=== PATIENT | male | born 1950 | race Caucasian/White ===

== ENCOUNTER 2020-07-23 01:48 | Emergency (ER) | payer MEDICARE, SELFPAY ==
--- NOTE | ~2020-07-23 | XR_ITS ---
EXAMINATION: XR chest 2V EXAM DATE: 07/23/2020 02:58 INDICATION: Feels like has irregular heartbeat. TECHNIQUE: Frontal and lateral projections of the chest obtained and reviewed. Comparison is made to prior examination from 04/05/2016. FINDINGS: Mild chronic hyperinflation. The lungs are clear. There are no pleural effusions. The ca rdiomediastinal silhouette is within normal limits. There is no pneumothorax suspected. The bones a nd soft tissues are unremarkable. IMPRESSION: No acute cardiopulmonary findings. Reviewed, dictated and finalized at location A. [employer]
[2020-07-23 01:58] VITALS: BP 152/90; PULSE 90; RESP 15; TEMP 36.7; O2SAT 98
--- NOTE | 2020-07-23 02:02 | ECG_ITS ---
Measurements Intervals [place] Rate: 84 P: 73 WI: 176 QRS: 63 QRSD: 89 T: 55 QT: 331 QTc: 391 Interpretive Statements SINUS RHYTHM POSSIBLE LEFT ATRIAL ENLARGEMENT BORDERLINE ECG Electronically Signed On 07-23-2020 11:28:43 SALES PROMOTION OFFICER by Mesfin Campbell D.O.
[2020-07-23] MEDS: ASPIRIN 81 MG CHEWABLE TABLET 324 MG PO (02:21)
[2020-07-23 02:26] LABS: Basophils Percent Auto 0.4 % (0.2-1.2); Eosinophils Absolute Auto 0.1 K/mm3 (0-0.3); Hematocrit 46.5 % (42.0-52.0); Immature Granulocyte Absolute 0.01 K/mm3 (0.00-0.031); Immature Granulocyte Percent A 0.1 % (0-0.5); Lymphocytes Absolute Auto 1.84 K/mm3 (0.9-3.2); Lymphocytes Percent Auto 25.9 % (18.3-44.2); Mean Corpuscular HGB Conc 34.4 g/dl (32-36); Mean Corpuscular Hemoglobin 31.3 pg (26-34); Mean Corpuscular Volume 90.8 fl (80-100); Mean Platelet Volume 10.8 fl (7.4-10.4); Monocytes Absolute Auto 0.7 K/mm3 (0.1-0.6); Monocytes Percent Auto 10.4 % (2.6-8.5); Neutrophils Absolute Auto 4.4 K/mm3 (1.3-6.7); Neutrophils Percent Auto 61.2 % (45.5-73.1); Platelet Count Result 188 k/mm3 (150-375); Red Blood Count 5.12 M/mm3 (4.6-6.20); Red Cell Distribution Width 12.6 % (11.5-14.5); White Blood Count 7.1 K/mm3 (4.5-10.0)
--- NOTE | 2020-07-23 02:32 | ED.ARRPALP ---
HPI - Arrhythmia/Palpitations General Chief Complaint: Arrhythmia/Palpitations Stated Complaint: Irregular HR Time Seen by Provider: 07/23/20 02:15 Source: patient Mode of arrival: ambulatory Limitations: no limitations History of Present Illness HPI narrative: Patient 62-year-old male complaining of irregular heartbeat described as when I took my heart rate it would go from 60 then 110 started prior to arrival. Patient states that he was checking his blood pressure using the machine, and the heart rate on the machine would jump from 60-110 back to 60. Patient denies any chest pain, shortness of breath, abdominal pain, nausea, vomiting, diaphoresis, fever or chills. Patient was a symptomatic during this time. Related Data Home Medications Medication Instructions Recorded Confirmed lisinopril 07/23/20 Allergies Allergy/AdvReac Type Severity Reaction Status Date / Time No Known Allergies Allergy Verified 07/23/20 02:18 Review of Systems Review of Systems: All systems reviewed & are unremarkable except as noted in HPI and below Constitutional: Constitutional: Denies body ache(s), Denies chills, Denies excessive sweating, Denies fatigue, Denies fever(s), Denies headache(s), Denies lethargy, Denies malaise, Denies weakness and Denies weight loss Eyes: Eyes: Denies blurry vision, Denies change in vision and Denies loss of vision ENT: Denies dizziness, Denies ear discharge, Denies headache(s), Denies lip swelling, Denies epistaxis, Denies nasal congestion, Denies neck pain, Denies throat swelling and Denies tongue swelling Cardiovascular: Cardiovascular: Denies chest pain, Denies chest pain at rest, Denies chest pain with activity, Denies diaphoresis, Denies edema, Denies lightheadedness, Denies dyspnea and Denies dyspnea on exertion Respiratory: Respiratory: Denies chest congestion, Denies cough, Denies hemoptysis, Denies dyspnea and Denies dyspnea on exertion Gastrointestinal: Gastrointestinal: Denies abdominal pain, Denies melena, Denies hematochezia, Denies diarrhea, Denies nausea, Denies vomiting and Denies hematemesis Musculoskeletal: Musculoskeletal: Denies abnormal gait, Denies deformity, Denies joint swelling, Denies limited range of motion, Denies neck pain and Denies numbness Neurologic: Denies Abnormal speech present, Denies abnormal gait, Denies confusion, Denies dizziness, Denies headache(s), Denies focal weakness, Denies loss of vision, Denies numbness, Denies Other visual disturbances, Denies Sensory deficit (Neuro) and Denies weakness Psychiatric: Psychiatric: Denies confusion, Denies depression, Denies auditory hallucinations, Denies homicidal ideation and Denies suicidal ideation Endocrine: Endocrine: Denies cold intolerance, Denies excessive sweating, Denies fatigue, Denies heat intolerance and Denies palpitations Hematologic/Lymphatic: Hematologic/Lymphatic: Denies easy bleeding and Denies easy bruising Allergic/Immunologic: Allergic/Immunologic: Denies lip swelling, Denies throat swelling and Denies tongue swelling Exam Const: General: cooperative, healthy appearing, comfortable, no acute distress, well developed, alert and awake; No confusion Orientation/consciousness: oriented to person, oriented to place, oriented to time, patient oriented x3 and No confusion Limitations: no limitations HENMT: Head: normal to inspection, normocephalic and atraumatic Ears: hearing grossly normal bilaterally, TM normal on the right and TM normal on the left General nose exam: Normal external nose present, Normal nares present and No nasal discharge present Face and sinus: normal facial exam Mouth: Yes Normal oral and palatal mucosa present, Yes lip normal, Yes tongue normal and Yes oropharynx normal Throat: posterior oropharynx normal, tonsils normal and uvula midline Eyes: General: appearance normal, both eyes and all related structures Pupils: Equal, round and reactive pupils present EOM: EOMs intact bilaterally
[2020-07-23 02:33] LABS: Prothrombin Time 14.2 Seconds (11.1-14.7)
[2020-07-23 02:34] LABS: Partial Thromboplastin Time 29.3 SECONDS (22.3-36.8)
[2020-07-23 02:35] LABS: Anion Gap 7 mmol/L (8-16); Blood Urea Nitrogen 21 mg/dL (9-20); Calcium 9.2 mg/dL (8.4-10.2); Carbon Dioxide 32 mmol/L (22-30); Chloride 102 mmol/L (98-107); Estimated CRCL calculation 65 ml/min; Estimated Glomerular Filt Rate > 60; Glucose 117 mg/dL (75-110); Potassium 3.7 mmol/L (3.4-5.0); Sodium 141 mmol/L (137-145)
[2020-07-23 02:47] LABS: Troponin I < 0.012 ng/mL (0.000-0.034)
[2020-07-23 03:35] VITALS: BP 148/83; PULSE 87; RESP 16; O2SAT 100
[2020-07-23 03:36] VITALS: BP 134/79; PULSE 78; RESP 16; TEMP 36.7; O2SAT 99
== END 2020-07-23 03:37 | disposition home or self-care (01) ==
PROVIDERS: Emergency Provider Emergency Medicine; PCP Family Medicine
DX: R00.2 Palpitations (principal); R94.31 Abnormal electrocardiogram [ECG] [EKG]
CPT/HCPCS: 36415; 71046; 80048; 84484; 85025; 85610; 85730; 93005; 99284; A9270

== ENCOUNTER → 2021-04-13 03:01 | Outpatient (CLI) | payer MEDICARE, SELFPAY ==
[2021-04-13 19:42] LABS: SARS-CoV-2 RNA PCR Negative
== END ==
PROVIDERS: PCP Nurse Practitioner Adult Health; Visit Provider Nurse Practitioner Adult Health
DX: R09.81 Nasal congestion (principal); Z20.822 Contact with and (suspected) exposure to COVID-19
CPT/HCPCS: C9803; U0003; U0005

== ENCOUNTER 2023-11-08 15:19 | Outpatient (CLI) | payer MEDICARE, SELFPAY ==
[2023-11-08 15:49] LABS: Basophils Percent Auto 0.4 % (0.2-1.2); Eosinophils Absolute Auto 0.2 K/mm3 (0-0.3); Eosinophils Percent Auto 3.7 % (0-4.4); Hematocrit 43.4 % (42.0-52.0); Hemoglobin 14.4 g/dL (14.0-18.0); Immature Granulocyte Absolute 0.01 K/mm3 (0.00-0.031); Immature Granulocyte Percent A 0.2 % (0-0.5); Lymphocytes Absolute Auto 0.78 K/mm3 (0.9-3.2); Mean Corpuscular HGB Conc 33.2 g/dl (32-36); Mean Corpuscular Hemoglobin 29.2 pg (26-34); Mean Platelet Volume 9.7 fl (7.4-10.4); Monocytes Absolute Auto 0.5 K/mm3 (0.1-0.6); Monocytes Percent Auto 9.4 % (2.6-8.5); Neutrophils Absolute Auto 3.4 K/mm3 (1.3-6.7); Neutrophils Percent Auto 70.3 % (45.5-73.1); Platelet Count Result 192 k/mm3 (150-375); Red Blood Count 4.93 M/mm3 (4.6-6.20); Red Cell Distribution Width 14.1 % (11.5-14.5); White Blood Count 4.9 K/mm3 (4.5-10.0)
[2023-11-08 18:10] LABS: Alanine Aminotransferase 24 U/L (6-50); Albumin Level 4.5 g/dL (3.5-5.1); Alkaline Phosphatase 53 U/L (38-126); Anion Gap 8 mmol/L (8-16); Aspartate Amino Transferase 34 U/L (17-59); Bilirubin,Total 0.8 mg/dL (0.2-1.3); Blood Urea Nitrogen 16 mg/dL (9-20); Calcium 9.6 mg/dL (8.4-10.2); Carbon Dioxide 30 mmol/L (22-30); Chloride 103 mmol/L (98-107); Estimated Glomerular Filt Rate > 60; Glucose 159 mg/dL (65-110); Lactate Dehydrogenase 194 U/L (120-246); Potassium 3.7 mmol/L (3.4-5.0); Sodium 141 mmol/L (137-145)
[2023-11-10 14:31] LABS: Folic Acid > 20.0 ng/mL (2.76->20)
[2023-11-10 15:36] LABS: Iron 53 ug/dL (49-181)
[2023-11-10 16:04] LABS: Percent Iron Saturation 18 % (20-50)
[2023-11-11 04:44] LABS: Methylmalonic Acid 171 nmol/L (87-318)
[2023-11-16 09:52] LABS: Soluble Transferrin Receptor 1.55 mg/L (0.76-1.76)
== END 2023-11-08 15:20 | disposition home or self-care (01) ==
LOC: ANHLAB 15:21
PROVIDERS: Nurse Practitioner Family; PCP Nurse Practitioner Adult Health; Visit Provider Internal Medicine Hematology & Oncology
DX: D72.810 Lymphocytopenia (principal); D50.9 Iron deficiency anemia, unspecified
CPT/HCPCS: 36415; 80053; 82607; 82728; 82746; 83540; 83550; 83615; 83921; 84238; 85025; 86038

== ENCOUNTER 2024-03-19 13:32 | Outpatient (CLI) | payer MEDICARE, SELFPAY ==
[2024-03-19 13:49] LABS: Basophils Percent Auto 0.3 % (0.2-1.2); Eosinophils Absolute Auto 0.1 K/mm3 (0-0.3); Eosinophils Percent Auto 2.6 % (0-4.4); Hematocrit 40.7 % (42.0-52.0); Hemoglobin 13.7 g/dL (14.0-18.0); Immature Granulocyte Absolute 0.01 K/mm3 (0.00-0.031); Immature Granulocyte Percent A 0.3 % (0-0.5); Lymphocytes Absolute Auto 0.71 K/mm3 (0.9-3.2); Lymphocytes Percent Auto 18.7 % (18.3-44.2); Mean Corpuscular HGB Conc 33.7 g/dl (32-36); Mean Corpuscular Hemoglobin 30.2 pg (26-34); Mean Corpuscular Volume 89.8 fl (80-100); Mean Platelet Volume 9.7 fl (7.4-10.4); Monocytes Absolute Auto 0.4 K/mm3 (0.1-0.6); Monocytes Percent Auto 9.7 % (2.6-8.5); Neutrophils Absolute Auto 2.6 K/mm3 (1.3-6.7); Neutrophils Percent Auto 68.4 % (45.5-73.1); Platelet Count Result 167 k/mm3 (150-375); Red Blood Count 4.53 M/mm3 (4.6-6.20); Red Cell Distribution Width 13.2 % (11.5-14.5); White Blood Count 3.8 K/mm3 (4.5-10.0)
[2024-03-19 16:43] LABS: Iron 109 ug/dL (49-181)
[2024-03-19 16:47] LABS: Anion Gap 10 mmol/L (4-12); Blood Urea Nitrogen 15 mg/dL (9-20); Calcium 8.8 mg/dL (8.4-10.2); Carbon Dioxide 28 mmol/L (22-30); Chloride 100 mmol/L (98-107); Estimated Glomerular Filt Rate > 60; Glucose 136 mg/dL (65-110); Potassium 4.2 mmol/L (3.4-5.0); Sodium 138 mmol/L (137-145)
[2024-03-19 16:55] LABS: Percent Iron Saturation 37 % (20-50)
== END 2024-03-19 13:33 | disposition home or self-care (01) ==
LOC: ANHLAB 13:33
PROVIDERS: Nurse Practitioner Family; PCP Nurse Practitioner Adult Health; Visit Provider Internal Medicine Hematology & Oncology
DX: D50.9 Iron deficiency anemia, unspecified (principal); D72.810 Lymphocytopenia
CPT/HCPCS: 36415; 80048; 82607; 82728; 83540; 83550; 85025

== ENCOUNTER 2024-07-25 12:12 | Outpatient (CLI) | payer MEDICARE, SELFPAY ==
[2024-07-25 12:27] LABS: Basophils Percent Auto 0.5 % (0.2-1.2); Eosinophils Absolute Auto 0.2 K/mm3 (0-0.3); Eosinophils Percent Auto 4.1 % (0-4.4); Hematocrit 39.9 % (42.0-52.0); Hemoglobin 13.5 g/dL (14.0-18.0); Immature Granulocyte Absolute 0.01 K/mm3 (0.00-0.031); Immature Granulocyte Percent A 0.3 % (0-0.5); Lymphocytes Absolute Auto 0.86 K/mm3 (0.9-3.2); Mean Corpuscular HGB Conc 33.8 g/dl (32-36); Mean Corpuscular Hemoglobin 30.8 pg (26-34); Mean Corpuscular Volume 91.1 fl (80-100); Mean Platelet Volume 9.5 fl (7.4-10.4); Monocytes Absolute Auto 0.5 K/mm3 (0.1-0.6); Monocytes Percent Auto 12.8 % (2.6-8.5); Neutrophils Absolute Auto 2.4 K/mm3 (1.3-6.7); Neutrophils Percent Auto 60.3 % (45.5-73.1); Platelet Count Result 169 k/mm3 (150-375); Red Blood Count 4.38 M/mm3 (4.6-6.20); Red Cell Distribution Width 12.6 % (11.5-14.5); White Blood Count 3.9 K/mm3 (4.5-10.0)
[2024-07-25 14:20] LABS: Anion Gap 5 mmol/L (4-12); Blood Urea Nitrogen 17 mg/dL (9-20); Carbon Dioxide 30 mmol/L (22-30); Chloride 104 mmol/L (98-107); Estimated Glomerular Filt Rate > 60; Glucose 97 mg/dL (65-110); Potassium 4.2 mmol/L (3.4-5.0); Sodium 139 mmol/L (137-145)
[2024-07-25 14:48] LABS: Iron 81 ug/dL (49-181)
[2024-07-25 14:57] LABS: Percent Iron Saturation 27 % (20-50)
== END 2024-07-25 12:13 | disposition home or self-care (01) ==
LOC: ANHLAB 12:14
PROVIDERS: PCP Nurse Practitioner Adult Health; Visit Provider Internal Medicine Hematology & Oncology
DX: D72.819 Decreased white blood cell count, unspecified (principal); D50.9 Iron deficiency anemia, unspecified
CPT/HCPCS: 36415; 80048; 82607; 82728; 83540; 83550; 85025

== ENCOUNTER 2025-01-23 15:48 | Emergency (ER) | payer MEDICARE, SELFPAY ==
--- NOTE | 2025-01-23 15:54 | ED.SKABFB ---
HPI - Skin/Abscess/Foreign Bdy General Chief complaint: Extremity Problem,Nontraumatic Stated complaint: LT Ankle Skin/Abscess/Foreign Body Time Seen by Provider: 01/23/25 16:00 Source: patient Mode of arrival: ambulatory Limitations: no limitations History of Present Illness HPI narrative: Juarez is a 74-year-old male patient presenting to the clinic today with complaints something stuck on his left ankle. He reports he thinks it may be a new skin growth. Denies any fevers, chills, body aches. Just noticed this within the last 24 hours. Denies being on the wounds. Has only been in his backyard. Related Data Home Medications ?Medication ?Instructions ?Recorded ?Confirmed ?Last Taken ?Type lisinopril 5 mg tablet 07/23/20 Unknown History Allergies Allergy/AdvReac Type Severity Reaction Status Date / Time adhesive tape Allergy Mild Rash Verified 01/23/25 16:06 Review of Systems Review of Systems: Pertinent positives per HPI. Patient denies any fever, chills, rash, headache, visual changes, dizziness, cough, runny nose, sore throat, shortness of breath, chest pain, palpitations, nausea, vomiting, diarrhea, constipation, abdominal pain, or any urinary issues. PMFSH Comments At the time of my signature, I reviewed and agree with the nursing past medical, surgical, social, and family history. There is no relevant family history pertinent to the patient complaint. Exam Narrative: General: Well-developed, well nourished, in no apparent distress Head: Normocephalic, atraumatic. Cardio: Regular rate and rhythm, s1 and s2 normal, no murmur appreciated. Resp: Clear to auscultation bilaterally, no rhonchi, rales, wheezing or rubs. Integumentary: [place], warm, and dry, tick attached to the left medial ankle with mild red rash at the base of the tick measuring 0.25 cm. Tick removed intact using alligator forceps. Area was cleansed with alcohol wipe. Course Course Emergency Course: Portions of this record may have been created with voice recognition software. Level of Care: Express Care Visit Vital Signs Vital signs: Vital Signs Temperature 36.6 C 01/23/25 15:57 Pulse Rate 75 01/23/25 15:57 Respiratory Rate 16 01/23/25 15:57 Blood Pressure 136/85 01/23/25 15:57 Pulse Oximetry 98 01/23/25 15:57 Oxygen Delivery Room Air 01/23/25 15:57 Temperature 36.6 C 01/23/25 15:57 Pulse Rate 75 01/23/25 15:57 Respiratory Rate 16 01/23/25 15:57 Blood Pressure 136/85 01/23/25 15:57 Pulse Oximetry 98 01/23/25 15:57 Oxygen Delivery Room Air 01/23/25 15:57 Vital signs reviewed MDM - Skin/Abscess/Foreign Bdy MDM Narrative Medical decision making narrative: At the time of visit patient is resting comfortably on the exam table. Patient appears to be nontoxic. Plan: Patient has a tick bite to the left medial ankle. Tick was removed intact in the clinic today using a alligator forceps. Patient tolerated well. Area was cleansed using alcohol swab and triple antibiotic ointment and Band-Aid was applied. Will give doxycycline 200 mg p.o. for prophylactic. Supportive measures were discussed with the patient and they voiced understanding discharge instructions and agrees to treatment plan. Return precautions reviewed Differential Diagnosis Differential diagnosis: Likely abscess of skin or subcutaneous tissue, viral exanthem, dermatophytosis, urticaria, herpes zoster, allergic reaction to drug, cellulitis, eczema, insect bites, impetigo and contact dermatitis Discharge Plan Discharge Clinical Impression: Tick bite of ankle Qualifiers: Encounter type: initial encounter Laterality: left Qualified Code(s): S90.562A - Insect bite (nonvenomous), left ankle, initial encounter Patient Disposition: Home Condition: Stable Instructions: Antibiotic Form, Tick Bite (ED) Additional Instructions: Take doxycycline as prescribed Wash the area daily with soap and water May take Tylenol/Motrin as needed for pain Watch for signs and symptoms of infection redness, swelling, increase in pain, purulent drainage, or streaking Go to the emergency room if you develop high fever not controlled by Tylenol Motrin, body aches, chills, confusion, weakness, lethargy, joint pain, or any other concerning symptom Patient Language: Hebrew Prescriptions: New doxycycline monohydrate 100 mg capsule 200 mg PO DAILY 1 Days Qty: 2 0RF No Action lisinopril 5 mg tablet Follow-up/Referrals: PHYSICIAN,POULTRY FARM SUPERVISOR [Primary Care Provider] - Time of Disposition: 16:05 Quality NIHSS Nursing Documentation ED NIHSS nursing documentation: reviewed/agree
[2025-01-23 15:57] VITALS: BP 136/85; PULSE 75; RESP 16; TEMP 36.6; O2SAT 98
--- OUTSIDE RECORDS SUMMARY | 2025-01-23 16:04 | XMS_ITS | Patient Health Record ---
Author Organization [facility] Address [address] [place] [address] Care Team Providers Care Turbine Room Attendant Name Role Phone Primo Ellis Primary Care Provider Kulwant Bailey DPM, Kvng Unavailable [phone] REASON FOR REFERRAL No Information SOCIAL HISTORY Sex Assigned At : Social History Observation Description Sex Assigned At Unknown PLAN OF TREATMENT No Information
--- OUTSIDE RECORDS SUMMARY | 2025-01-23 16:04 | XMS_ITS | Data Portability ---
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 diagnostic sleep study 11/08/19 sleep onset = 18.5 minutes, REM onset = 99.5 minutes, AHI = 17, PLMI = 149 [facility] titration sleep study 11/21/19 sleep onset = 3.5 minutes, REM onset = 126 minutes, CPAP 7 cmH2O, PLMI = 100 Non-pharmacologi c therapy options for periodic limb movement disorder include avoidance of aggravating drugs and substances, mental alerting activities, short daily hemodialysis for patients in renal failure, exercise, leg massage, stretching calf muscles, use of a weighted blanket and applied heat. Patient will cut down on alcohol consumption and caffeine intake. We will check BUN, Creatinine, Vitamin E, Vitamin B12, RBC folate, Iron, TIBC, Ferritin, ESR, Magnesium, Hgb and Hct levels. PAP compliance downloaded and interpreted x 20 minutes. Data reviewed and explained to the patient. Average apnea/hypopnea index (AHI) is 4.8. Patient used PAP > 4 hours 87% of the time. PAP is set at 9 cmH2O. PAP will be reset at 10 cmH2O. Keep ramp off. Keep EPR +2 radio time salesperson. Oxygen supplementation: none Keep humidifier at level 4. Patient is benefiting from PAP therapy. Encouraged patient to maintain PAP use more than 70% of the time. Statement of PAP use and benefits will be sent to the home care store. Educated the patient on problems and solutions associated with positive airway pressure (PAP) use. Difficulty tolerating pressure, mask leaks, intolerance of interface, nasal congestion, claustrophobic response, dry mouth, and unintentional mask removal during sleep were covered. Patient's mask leaks air. We will ensure the mask is situated properly. Patient can wear protective eye covering during sleep, and the mask can be resized. Provided the patient with a list of local home care stores where positive airway pressure (PAP) units, accoutrement, and services are available. Home care store selection is based on patient's insurance carrier. Patient will setup an appointment with [facility] for supplies and pressure adjustments. A major predictor of success with use of PAP is follow-up with both the respiratory supplier and the treating physician. The respiratory supplier optimally will follow-up within two weeks after starting use while the treating physician optimally will follow-up within 90 days after starting therapy to assess adherence and effectiveness of treatment. The download results can show the treating physician information about adherence to treatment, residual AHI while on treatment and presence of large mask leakage. This information is especially helpful if the patient has residual sleepiness despite treatment. General information on sleep disordered breathing, evaluation of sleep disordered breathing, treatment with PAP therapy, and living with PAP therapy were covered. We discussed with the patient the impact of weight on: Sleep disordered breathing Hypertension Hyperlipidemia Prediabetes Hepatic steatosis Knee OA Urge urinary incontinence Varicosis We discussed with the patient the benefit of PAP therapy on: Sleep disordered breathing Anxiety Postnasal drip Hypertension Prediabetes Educated the patient on sleep hygiene measures. Relaxing rituals to rest easy, understanding foods with positive and negative impact on sleep, creating a peaceful sleep environment, timing of exercise, using herbal sleep aids, and practicing sleep-friendly meditation were covered. To determine how much sleep is needed, the patient will assess where he falls on the spectrum, examine what lifestyle factors such as work schedules and stress are affecting the quality and quantity of sleep. In general, adults need 7-9 hours of sleep. Educated the patient regarding foods that promote sleep. These include but are not limited to cherries, bananas, toast, oatmeal, and warm milk. Educated the patient regarding foods and drinks to avoid before bedtime. These include but are not limited to aged cheese, chocolate, spicy foods, tomato-based sauces, soy, ginseng tea and processed meat. Advocated influenza vaccination annually and pneumonia vaccination ANDREW. Advocated weight loss through diet and exercise. Patient's ideal body weight according to height and gender is up to 200 lbs. Encouraged patient to adjust caloric intake to maintain/achieve ideal body weight, emphasizing on fruits, vegetables, whole grains, and fat-free or low-fat products. These include lean meats, poultry, fish, beans, eggs, and nuts and foods that are low in saturated fats, trans-fats, cholesterol, salt (sodium), and glycemic index. Stressed the importance of regular exercise up to the patient's capacity limits. In this case, we recommend 20 min daily walking, 2 days a week of resistance training. Patient to monitor BP daily and bring records to PCP for further management. 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 diagnostic sleep study 11/08/19 sleep onset = 18.5 minutes, REM onset = 99.5 minutes, AHI = 17, PLMI = 149 [facility] titration sleep study 11/21/19 sleep onset = 3.5 minutes, REM onset = 126 minutes, CPAP 7 cmH2O, PLMI = 100 BUN 04/03/24 22 mg% Non-pharmacologi c therapy options for periodic limb movement disorder include avoidance of aggravating drugs and substances, mental alerting activities, short daily hemodialysis for patients in renal failure, exercise, leg massage, stretching calf muscles, use of a weighted blanket and applied heat. Patient will cut down on alcohol consumption and caffeine intake. Creatinine, Vitamin E, Vitamin B12, RBC folate, Iron, TIBC, Ferritin, ESR, Magnesium, Hgb and Hct levels are within normal limits. We will hold off on dopaminergic therapy for now. PAP compliance downloaded and interpreted x 20 minutes. Data reviewed and explained to the patient. Average apnea/hypopnea index (AHI) is 4.8. Patient used PAP > 4 hours 95% of the time. PAP is set at 10 cmH2O. PAP will remain at 10 cmH2O. Keep ramp off. Keep EPR +2 radio time salesperson. Oxygen supplementation: none Keep humidifier at level 4. Patient is benefiting from PAP therapy. Encouraged patient to maintain PAP use more than 70% of the time. Statement of PAP use and benefits will be sent to the home care store. Educated the patient on problems and solutions associated with positive airway pressure (PAP) use. Difficulty tolerating pressure, mask leaks, intolerance of interface, nasal congestion, claustrophobic response, dry mouth, and unintentional mask removal during sleep were covered. Patient's mask leaks air. We will ensure the mask is situated properly. Patient can wear protective eye covering during sleep, and the mask can be resized. Provided the patient with a list of local home care stores where positive airway pressure (PAP) units, accoutrement, and services are available. Home care store selection is based on patient's insurance carrier. Patient will setup an appointment with [facility] for supplies and pressure adjustments. A major predictor of success with use of PAP is follow-up with both the respiratory supplier and the treating physician. The respiratory supplier optimally will follow-up within two weeks after starting use while the treating physician optimally will follow-up within 90 days after starting therapy to assess adherence and effectiveness of treatment. The download results can show the treating physician information about adherence to treatment, residual AHI while on treatment and presence of large mask leakage. This information is especially helpful if the patient has residual sleepiness despite treatment. General information on sleep disordered breathing, evaluation of sleep disordered breathing, treatment with PAP therapy, and living with PAP therapy were covered. We discussed with the patient the impact of weight on: Sleep disordered breathing Hypertension Hyperlipidemia Prediabetes Hepatic steatosis Knee OA Urge urinary incontinence Varicosis We discussed with the patient the benefit of PAP therapy on: Sleep disordered breathing Anxiety Postnasal drip Hypertension Prediabetes Educated the patient on sleep hygiene measures. Relaxing rituals to rest easy, understanding foods with positive and negative impact on sleep, creating a peaceful sleep environment, timing of exercise, using herbal sleep aids, and practicing sleep-friendly meditation were covered. To determine how much sleep is needed, the patient will assess where he falls on the spectrum, examine what lifestyle factors such as work schedules and stress are affecting the quality and quantity of sleep. In general, adults need 7-9 hours of sleep. Educated the patient regarding foods that promote sleep. These include but are not limited to cherries, bananas, toast, oatmeal, and warm milk. Educated the patient regarding foods and drinks to avoid before bedtime. These include but are not limited to aged cheese, chocolate, spicy foods, tomato-based sauces, soy, ginseng tea and processed meat. Advocated influenza vaccination annually and pneumonia vaccination ANDREW. Advocated weight loss through diet and exercise. Patient's ideal body weight according to height and gender is up to 200 lbs. Encouraged patient to adjust caloric intake to maintain/achieve ideal body weight, emphasizing on fruits, vegetables, whole grains, and fat-free or low-fat products. These include lean meats, poultry, fish, beans, eggs, and nuts and foods that are low in saturated fats, trans-fats, cholesterol, salt (sodium), and glycemic index. Stressed the importance of regular exercise up to the patient's capacity limits. In this case, we recommend 20 min daily walking, 2 days a week of resistance training. Patient to monitor BP daily and bring records to PCP for further management. Follow-up: 1 year, April 2025 Not available 04/24/2024 11:54:53 05/02/2024 05/02/2024 10/17/2023: A1C 5.6 Not available 05/01/2024 19:11:30 11/21/2024 11/21/2024 10/17/2023: A1C 5.6 Not available 11/21/2024 10:27:48 Plan of Treatment Reminders Order Date Submit Date Provider Last Modified By Organization Details Last Modified Time Details Appointments Any 30 2024 10:30A M Oscar Gates MD Not available Not available Not available Any 15 2024 10:45A M Primo moody MD Not available Not available Not available Lab glycohemo globin, total, blood 2024 025 [email or web address] [facility] (Lab), [address] [place], [address], 11/21/2024 11:19:46 microalbu min, urine 2024 025 [email or web address] [facility] (Lab), [address] [place], [address], 11/21/2024 11:19:47 vitamin B12 + folate, serum or blood [address] (Lab), [address] [place], [address], 11/21/2024 11:19:48 lipid panel, serum [address] (Lab), [address] [place], [address], 11/21/2024 11:19:47 CBC w/ auto diff [address] (Lab), [address] [place], [address], 11/21/2024 11:19:47 CMP, serum or plasma [address] (Lab), [address] [place], [address], 11/21/2024 11:19:47 TSH, serum or plasma [address] (Lab), [address] [place], [address], 11/21/2024 11:19:48 glycohemo globin, total, blood [address] (Lab), [address] [place], [address], 11/25/2024 12:38:06 microalbu min, urine [address] (Lab), [address] [place], [address], 11/25/2024 12:38:06 lipid panel, serum [address] (Lab), [address] [place], [address], 11/25/2024 12:38:07 CBC w/ auto diff [address] (Lab), [address] [place], [address], 11/25/2024 12:38:07 CMP, serum or plasma [address] (Lab), [address] [place], [address], 11/25/2024 12:38:07 TSH, serum or plasma [address] (Lab), [address] [place], [address], 11/25/2024 12:38:07 vitamin B12 + folate, serum or blood [address] (Lab), [address] [place], [address], 11/25/2024 12:38:07 iron + TIBC + ferritin, serum 2023 024 [facility] (Lab), [address] [place], [address], 04/03/2024 17:22:52 folate, RBC 2023 024 [facility] (Lab), [address] [place], [address], 04/08/2024 11:14:44 vitamin B12, serum [address] (Lab), [address] [place], [address], 07/31/2024 14:15:34 ESR (erythroc yte sedimenta tion rate), blood [email or web address] (Lab), [address] [place], [address], 07/31/2024 14:15:35 hemoglobi n + hematocri t, blood 2023 024 [email or web address] 2 [facility] (Lab), [address] [place], [address], 07/31/2024 14:15:35 bun (blood urea nitrogen) , serum or plasma 2023 024 [email or web address] 2 [facility] (Lab), [address] [place], [address], 07/31/2024 14:15:35 creatinin e, serum or plasma 2023 024 [email or web address] 2 [facility] (Lab), [address] [place], [address], 07/31/2024 14:15:35 magnesium , serum or plasma 2023 024 [email or web address] 2 [facility] (Lab), [address] [place], [address], 07/31/2024 14:15:36 vitamin E, serum 2023 024 [email or web address] 2 [facility] (Lab), [address] [place], [address], 07/31/2024 14:15:36 glycohemo globin, total, blood 2023 024 [facility] (Lab), [address] [place], [address], 10/17/2023 16:32:51 microalbu min, urine 2023 024 [facility] (Lab), [address] [place], [address], 10/17/2023 14:18:30 lipid panel, serum 2023 024 [facility] (Lab), [address] [place], [address], 10/17/2023 14:27:14 CBC w/ auto diff 2023 024 [facility] (Lab), [address] [place], [address], 10/17/2023 14:55:21 CMP, serum or plasma 2023 024 [facility] (Lab), [address] [place], [address], 10/17/2023 14:27:30 TSH, serum or plasma 2023 024 [facility] (Lab), [address] [place], [address], 10/17/2023 15:04:57 vitamin B12 + folate, serum or blood [address] (Lab), [address] [place], [address], 10/25/2023 10:12:33 Referral diabetic ophthalmo logy referral - Please call patient to schedule an appointme nt. Thank you. 2024 025 CHASITY Harris, [address], [place], [address], 11/25/2024 11:45:22 podiatris t referral - Please call patient to schedule an appointme nt. Thank you. 2024 025 CHASITY Bailey DPM, [address], [address], [place], [address], 11/25/2024 12:05:21 dermatolo gist referral - Please call patient to schedule an appointme nt. Thank you. 2024 025 ATHENAFAX Kaden James MD, [address], [address], [place], [address], 11/25/2024 11:35:17 diabetic ophthalmo logy referral - Please call patient to schedule. 2023 024 [email or web address] [employer], [address], [place], [address], 12/12/2024 09:08:54 podiatris t referral 2023 024 [email or web address] Kvng Bailey DPM, [address], [address], [place], [address], 05/02/2024 18:23:09 dermatolo gist referral 2023 024 Kaden James MD, [address], [address], [place], [address], 05/08/2024 08:20:30 diabetic ophthalmo logy referral 2023 024 [facility], [address], [place], [address], 05/13/2024 09:15:32 podiatris t referral 2023 024 [email or web address] Kvng Bailey DPM, [address], [address], [place], [address], 05/13/2024 09:15:33 cardiolog ist referral 2023 024 [place], [address], [address], [place], [address], 11/15/2023 17:57:46 pulmonolo gist referral 2023 024 [email or web address] Oscar Gates MD, [address] [place], [address], 11/14/2023 10:28:30 dermatolo gist referral 2023 024 SHANAE James MD, [address], [address], 11/23/2023 23:51:35 Procedures None recorded. Surgeries None recorded. Imaging US, liver 2023 024 2 Not available 04/01/2024 11:29:47 Medication Orders None recorded. Patient TargetsNo targets recorded. Patient Instructions Encounter Date Encounter Id Patient Instructions Last Modified By Organization Details Last Modified Time 05/02/2024 [id number] dementia rating scale-2* [email or web address] Not available 05/03/2024 00:01:20 alcohol misuse* [email or web address] Not available 05/03/2024 00:01:36 depression screening* Not available 05/03/2024 00:01:51 multi-dimensiona l health assessment questionnaire* [email or web address] 2 Not available 05/07/2024 18:25:13 advance care planning: care instructions [email or web address] 2 Not available 05/07/2024 18:25:13 advance directiv es: care instructions [email or web address] 2 Not available 05/07/2024 18:25:13 [place] Advance Directives [email or web address] 2 Not available 05/07/2024 18:25:13 Personalized a lth Plan and Screening Recommendations Advance Directives - Do you have one? No You have indicated that you are capable of preparing your advance care directive Advance Directives - Do we have your advance directive on file in your health record? Primary Prevention/Interven tion (prevents or decreases the chance of common diseases from occurring) Smoking Risk: Non Smoker Alcohol Misuse Screening: Negative Weight: Overweight try to lose 10% of your body weight Physical activity: Appropriate physical activity minimum of 20-30 minutes activity that causes mild breathlessness/day Nutrition: Average Refer to attached handout Heart-Healthy Diet: After Your Visit Fall Risk (screened today): Low Refer to attached handout Preventing Falls: After your Visit Vaccines Pneumococcal: No further needed Influenza: Your next one in the fall of this year Chronic Disease Risks Stroke: Intermediate Risk I have no recommendations Act ojhn diagnosis, Continue current treatment plan My recommendation would be to make an appointment for further testing Follow Heart Healthy Diet Heart Attack: Intermediate Risk I have no recommendations Act john diagnosis, Continue current treatment plan My recommendation would be to make an appointment for further testing Follow Heart Healthy Diet Clogging of the Arteries: Intermediate Risk I have no recommendations Act john diagnosis, Continue current treatment plan My recommendation would be to make an appointment for further testing Follow Heart Healthy Diet Diabetes: High Risk Drastically limit sugar and products made with any type of flour (bread, pasta, cereal, cookies, crackers, etc.) Secondary Prevention/Interven tion (detects treatable diseases before they may cause symptoms, disability, or ) Prostate Cancer Screening: Your next PSA in: No PSA screening necessary Ordered Colon Cancer Screening: No screening necessary Eye Disease Screening: Recommended today Dementia Risk: Low I have no recommendations Depression Screening: Negative [email or web address] Not available 05/03/2024 00:04:41 Reason for Referral Diabetic Ophthalmology Refer ral for Prediabetes Referring Physician: Primo Ellis Internal Medicine, Encounter Date: 10/17/2023 Director Of Promotions Referral for Pred iabetes Referring Physician: Jacqueline Howard Medicine, Encounter Date: 10/17/2023 Shortage Worker Referral for O bstructive sleep apnea syndrome Referring Physician: Jacqueline Howard Medicine, Encounter Date: 10/17/2023 Sustainment Logistics Analyst Referral for S kin lesion Referring Physician: Jacqueline Howard, Encounter Date: 10/17/2023 Axle And Frame Mechanic Referral for Va ricose veins of lower extremity Referring Physician: Jacqueline Howard, Encounter Date: 10/17/2023 Diabetic Ophthalmology Refer ral for Prediabetes Please call patient to schedule. Referring Physician: Jacqueline Howard, Encounter Date: 05/02/2024 Director Of Promotions Referral for Pred iabetes Referring Physician: Jacqueline Howard, Encounter Date: 05/02/2024 Sustainment Logistics Analyst Referral for S kin lesion Referring Physician: Primo Ellis, Internal Medicine, Encounter Date: 05/02/2024 Diabetic Ophthalmology Refer ral for Prediabetes Please call patient to schedule an appointment. Thank you. Referring Physician: Primo Ellis, Internal Medicine, Encounter Date: 11/21/2024 Director Of Promotions Referral for Pred iabetes Please call patient to schedule an appointment. Thank you. Referring Physician: Primo Ellis, Internal Medicine, Encounter Date: 11/21/2024 Sustainment Logistics Analyst Referral for S kin lesion Please call patient to schedule an appointment. Thank you. Referring Physician: Primo Ellis, Internal Medicine, Encounter Date: 11/21/2024 Results Created Date Observation Date Name Description Value Unit Range Abnormal Flag Note LastModifiedBy Organization Detail LastModifiedTime 11/23/1911/23/2023 COLOG UARD cologuard result Cancel led - Duplic ate Order not applic able Not Available [facility] (Cologuard Orders Only) [address], [place], [address], 11/23/2023 14:18:24 10/17/19 24 10/17/2023 MICRO ALBUM IN RANDO M URINE microalbumin , urine <6.0 mg/L 0.0-16 .6 Not Available [facility] (Lab) [address] [place], [address], 10/17/2023 14:18:30 10/17/19 24 10/17/2023 LIPID PANEL cholesterol 168 mg/dL 140-19 9 NIH TEO NSUS RECOM MENDA TION FOR FLORIAN STERO L: ADULT CHILD LOW RISK: <200 <170 BORDE RLINE : <200- 239 ----- HIGH RISK: >240 >200 Not Available [facility] (Lab) [address] [place], [address], 10/17/2023 14:27:14 10/17/19 24 10/17/2023 LIPID PANEL triglyceride s 81 mg/dL 0-150 NIH TEO NSUS REPOR T RECOM MENDA TION FOR TRIGL YCERI JOSE RAUL: ADULT CHILD LOW RISK: <150 ----- BODER LINE: 150-1 99 ----- HIGH RISK: >200 ----- Not Available [facility] (Lab) [address] [place], [address], 10/17/2023 14:27:14 10/17/19 24 10/17/2023 LIPID PANEL HDL cholesterol 54 mg/dL 40- Not Available [facility] (Lab) [address] [place], [address], 10/17/2023 14:27:14 10/17/19 24 10/17/2023 LIPID PANEL LDL cholesterol, calculated 98 mg/dL 0-130 NIH TEO NSUS REPOR T RECOM MENDA TIONS FOR LDL: ADULT CHILD LOW RISK <130 <110 (OPTI MAL LDL) <100 ----- SUNI RLINE : 130-1 59 ----- HIGH RISK: >160 >130 A TRIGL YCERI DE RESUL T >400 INVAL IDATE S THE CALCU LATIO N FOR LDL FRACT IONAT ION - THE LDL RESUL T WILL NOT BE REPOR LETI. Not Available [facility] (Lab) [address] [place], [address], 10/17/2023 14:27:14 10/17/19 24 10/17/2023 COMPR EHENS JOHN METAB OLIC PANEL sodium 139 mmol/ L 137-14 5 Not Available [facility] (Lab) [address] [place], [address], 10/17/2023 14:27:30 10/17/19 24 10/17/2023 COMPR EHENS JOHN METAB OLIC PANEL potassium 4.1 mmol/ L 3.5-5. 1 Not Available [facility] (Lab) [address] [place], [address], 10/17/2023 14:27:30 10/17/19 24 10/17/2023 COMPR EHENS JOHN METAB OLIC PANEL chloride 107 mmol/ L 98-107 Not Available [facility] (Lab) [address] [place], [address], 10/17/2023 14:27:30 10/17/19 24 10/17/2023 COMPR EHENS JOHN METAB OLIC PANEL carbon dioxide 27 mmol/ L 22-30 Not Available [facility] (Lab) [address] [place], [address], 10/17/2023 14:27:30 10/17/19 24 10/17/2023 COMPR EHENS JOHN METAB OLIC PANEL anion gap 9.1 mmol/ L 14-22 low Not Available [facility] (Lab) [address] [place], [address], 10/17/2023 14:27:30 10/17/19 24 10/17/2023 COMPR EHENS JOHN METAB OLIC PANEL glucose 96 mg/dL 70-99 Not Available [facility] (Lab) [address] [place], [address], 10/17/2023 14:27:30 10/17/19 24 10/17/2023 COMPR EHENS JOHN METAB OLIC PANEL BUN 17 mg/dL 8-19 Not Available [facility] (Lab) [address] [place], [address], 10/17/2023 14:27:30 10/17/19 24 10/17/2023 COMPR EHENS JOHN METAB OLIC PANEL creatinine 0.75 mg/dL 0.66-1 .25 Not Available [facility] (Lab) [address] [place], [address], 10/17/2023 14:27:30 10/17/19 24 10/17/2023 COMPR EHENS JOHN METAB OLIC PANEL GFR >60 Refer ence Range : [place] [facility] GFR Healt hy Adult : >60 mL/mi n/1.7 3 m2 Chron ic Kidne y Disea se: 15-60 mL/mi n/1.7 3 m2 Kidne y Failu re: <15/m L/min /1.73 m2 www.n iddk. nih.g ov The MDRD study equat ion has not been valid ated in child toña <18 years of age; pregn ant women ; the elder ly >85 years of age; or in some racia l or ethni c subgr oups, such as Hispa nics. Outsi de the valid ated carol eters , estim ated GFR is less accur ate, requi ring clini cyn judgm ent on a case- by-ca se basis . Clini cyn inter preta tion for other races and ages must be made by the clini kirti. The MDRD study equat ion has not been valid ated for the evalu ation of serum creat inine relat ed to nutri meaghan l statu s or medic ation usage . For perso ns <18 years of age, a pedia tric GFR calcu lator is avail able on the [facility] websi te: https ://macarena w.lee chan.o rg/pr ofess ional s/kdo qi/gf r_cal culat or Not Available [facility] (Lab) [address] [place], [address], 10/17/2023 14:27:30 10/17/19 24 10/17/2023 COMPR EHENS JOHN METAB OLIC PANEL alkaline phosphatase 46 U/L 38-126 Not Available [facility] (Lab) [address] [place], [address], 10/17/2023 14:27:30 10/17/19 24 10/17/2023 COMPR EHENS JOHN METAB OLIC PANEL alanine aminotransfe rase 26 U/L 0-50 Not Available [facility] (Lab) [address] [place], [address], 10/17/2023 14:27:30 10/17/19 24 10/17/2023 COMPR EHENS JOHN METAB OLIC PANEL aspartate aminotransfe rase 31 U/L 15-46 Not Available [facility] (Lab) [address] [place], [address], 10/17/2023 14:27:30 10/17/19 24 10/17/2023 COMPR EHENS JOHN METAB OLIC PANEL bilirubin, total 0.50 mg/dL 0.20-1 .30 Not Available [facility] (Lab) [address] [place], [address], 10/17/2023 14:27:30 10/17/19 24 10/17/2023 COMPR EHENS JOHN METAB OLIC PANEL calcium 9.2 mg/dL 8.4-10 .2 Not Available [facility] (Lab) [address] [place], [address], 10/17/2023 14:27:30 10/17/19 24 10/17/2023 COMPR EHENS JOHN METAB OLIC PANEL total protein 7.0 g/dL 6.3-8. 2 Not Available [facility] (Lab) [address] [place], [address], 10/17/2023 14:27:30 10/17/19 24 10/17/2023 COMPR EHENS JOHN METAB OLIC PANEL albumin 4.1 g/dL 3.0-4. 4 Not Available [facility] (Lab) [address] [place], [address], 10/17/2023 14:27:30 10/17/19 24 10/17/2023 COMPR EHENS JOHN METAB OLIC PANEL globulin 2.9 g/dL 2.6-4. 2 Not Available [facility] (Lab) [address] [place], [address], 10/17/2023 14:27:30 10/17/19 24 10/17/2023 COMPR EHENS JOHN METAB OLIC PANEL A/G ratio 1.4 ratio 1.0-2. 0 Not Available [facility] (Lab) [address] [place], [address], 10/17/2023 14:27:30 10/17/19 24 10/17/2023 CBC/C OMPLE TE BLD COUNT W/DIF F white blood cells 2.9 x10'3 /uL 4.2-10 .8 low Not Available [facility] (Lab) [address] [place], [address], 10/17/2023 15:24:22 10/17/19 24 10/17/2023 CBC/C OMPLE TE BLD COUNT W/DIF F red blood cells 4.39 x10'6 /uL 4.10-5 .80 Not Available [facility] (Lab) [address] [place], [address], 10/17/2023 15:24:22 10/17/19 24 10/17/2023 CBC/C OMPLE TE BLD COUNT W/DIF F hemoglobin 12.9 g/dL 13.2-1 7.0 low Not Available [facility] (Lab) [address] [facility] [place], [address], 10/17/2023 15:24:22 10/17/19 24 10/17/2023 CBC/C OMPLE TE BLD COUNT W/DIF F hematocrit 39.1 % 39.3-5 0.0 low Not Available [facility] (Lab) [address] [place], [address], 10/17/2023 15:24:22 10/17/19 24 10/17/2023 CBC/C OMPLE TE BLD COUNT W/DIF F mean red cell volume 89.1 fL 80.0-9 7.0 Not Available [facility] (Lab) [address] [place], [address], 10/17/2023 15:24:22 10/17/19 24 10/17/2023 CBC/C OMPLE TE BLD COUNT W/DIF F mean red cell hemoglobin 29.4 pg 27.0-3 3.0 Not Available [facility] (Lab) [address] [place], [address], 10/17/2023 15:24:22 10/17/19 24 10/17/2023 CBC/C OMPLE TE BLD COUNT W/DIF F mean RBC HGB concentratio n 33.0 g/dL 31.0-3 6.0 Not Available [facility] (Lab) [address] [place], [address], 10/17/2023 15:24:22 10/17/19 24 10/17/2023 CBC/C OMPLE TE BLD COUNT W/DIF F red cell distribution width 14.6 % 11.8-1 5.5 Not Available [facility] (Lab) [address] [place], [address], 10/17/2023 15:24:22 10/17/19 24 10/17/2023 CBC/C OMPLE TE BLD COUNT W/DIF F platelets 158 x10'3 /uL 150-40 0 Not Available [facility] (Lab) [address] [place], [address], 10/17/2023 15:24:22 10/17/19 24 10/17/2023 CBC/C OMPLE TE BLD COUNT W/DIF F mean platelet volume 10.4 fL 9.0-12 .4 Not Available [facility] (Lab) [address] [place], [address], 10/17/2023 15:24:22 10/17/19 24 10/17/2023 CBC/C OMPLE TE BLD COUNT W/DIF F neutrophils 60 % 39.0-7 2.0 Not Available [facility] (Lab) [address] [place], [address], 10/17/2023 15:24:22 10/17/19 24 10/17/2023 CBC/C OMPLE TE BLD COUNT W/DIF F lymphocytes 20 % 16.0-4 7.0 Not Available [facility] (Lab) [address] [place], [address], 10/17/2023 15:24:22 10/17/19 24 10/17/2023 CBC/C OMPLE TE BLD COUNT W/DIF F monocytes 11 % 5.0-12 .0 Not Available [facility] (Lab) [address] [place], [address], 10/17/2023 15:24:22 10/17/19 24 10/17/2023 CBC/C OMPLE TE BLD COUNT W/DIF F eosinophils 9 % 1.0-7. 0 high Not Available [facility] (Lab) [address] [place], [address], 10/17/2023 15:24:22 10/17/19 24 10/17/2023 CBC/C OMPLE TE BLD COUNT W/DIF F neutrophils, absolute count 1.80 x10'3 /uL 1.5-8. 0 Not Available [facility] (Lab) [address] [place], [address], 10/17/2023 15:24:22 10/17/19 24 10/17/2023 CBC/C OMPLE TE BLD COUNT W/DIF F nucleated red blood cells 0.0 % -0 Not Available [facility] (Lab) [address] [place], [address], 10/17/2023 15:24:22 10/17/19 24 10/17/2023 CBC/C OMPLE TE BLD COUNT W/DIF F NRBC# 0.00 x10'3 /uL Not Available [facility] (Lab) [address] [place], [address], 10/17/2023 15:24:22 10/17/19 24 10/17/2023 TSH W/REF IVETTE FT4 TSH with reflex free T4 0.925 uIU/m L 0.465- 4.680 Not Available [facility] (Lab) [address] [place], [address], 10/17/2023 15:04:57 10/17/19 24 10/17/2023 VITAM IN B12 (NINOSKA EUGENE ) vb12 704 pg/mL 239-93 1 Not Available [facility] (Lab) [address] [place], [address], 10/17/2023 15:38:05 10/17/19 24 10/17/2023 FOLAT E, SERUM /PLAS MA folate >20 NG/mL 2.76-2 0.0 Not Available [facility] (Lab) [address] [place], [address], 10/17/2023 16:59:30 10/17/19 24 10/17/2023 HEMOG LOBIN A1C HA1C 5.6 % 4.0-6. 0 Diabe jeffrey Scree patel Crite eyal: <5.7% Consi stent with absen ce of diabe jeffrey 5.7-6 .4% Consi stent with incre ased risk for diabe jeffrey (pred iabet es) >OR=6 .5% Consi stent with diabe jeffrey REFER ENCE: Diabe jeffrey Care 2016, 39([place] ppl.1 ):s13 -s22 Not Available [facility] (Lab) [address] [place], [address], 10/17/2023 16:32:51 10/31/19 24 US, liver [facility] [address] [place] [address] Patien t Name: JULIANNA PRADO Access ion #: [id number] Sex: M : 1949 5 Dictat ed By: Christa Reyes Attend ing Physic marvin: DA GREGG Orderi ng Physic marvin: DA GREGG Exam Date: 2023 08:13 AM Exam Name: US ABD/LT D/ORG/ UQ/GB Admitt ing Diagno sis(es ): INDICA TION: Elevat ed liver enzyme s TECHNI QUE: Multip le real-t brooklynn sonogr aphic images were obtain ed of the right upper quadra nt. COMPAR MARY BETH: None. FINDIN GS: The liver demons trates homoge nous increa sed echote xture withou t focal mass lesion s. There is no intrah epatic or extrah epatic ductal dilata tion. The common duct measur es 0.6 cm. Post cholec ystect kevan. The right kidney measur es 10.3 cm. The right kidney is normal in contou r, size, and shape. The echoge nicity is normal . There is no hydron ephros is. The pancre as is not well visual ized due to overly ing bowel gas. IMPRES OLE: Hepati c steato sis Electr onical ly Signed by: Christa Reyes at 2023 11:23: 45 AM Page 1 [id number] [facility] (Imaging) [address] [place], [address], 04/01/2024 11:29:47 12/06/19 24 12/06/2023 arter ial study , lower extre mity, compl ete No observ ation record ed. [facility] [address], [place], [address], 03/17/2024 15:42:26 Result Notes None recorded. Problems Name Problem SNOMED Code Status Onset Date Resolution Date Notes Provider Name and Address Organization Details Recorded Time Infestatio n by Sarcoptes scabiei barney hominis 926747704 Completed Not Available [facility] 3 06:07:49 Skin tag 431715591 Completed Not Available [facility] 3 06:07:49 Hypertroph ic condition of skin 26320356 Completed Not Available [facility] 3 06:07:49 Benign prostatic hyperplasi a 866961063 Active Not Available [facility] 3 07:20:47 Low back strain 140100847 Completed 201610/10/2019 Not Available [facility] 3 06:07:49 Dehydratio n 38384797 Completed Not Available [facility] 3 06:07:49 Sinusitis 09881669 Completed Not Available [facility] 3 06:07:50 Hypertensi ve disorder 56398364 Active 2019 Not Available [facility] 3 07:20:47 Anxiety 81419489 Active Not Available [facility] 3 07:20:47 Dysuria 84315752 Completed Not Available [facility] 3 06:07:50 Hyperpigme ntation of skin 20169136 Completed Not Available [facility] 3 06:07:50 Urinary tract infectious disease 41844337 Completed BRAD Hans[place], [place] [facility] 5 15:40:09 Prediabete s 974116340 Active 2020 Not Available [facility] 3 07:20:47 Posterior rhinorrhea 45430673 Active Not Available [facility] 3 07:20:47 Obstructiv e sleep apnea syndrome 95285816 Active 2019 Not Available [facility] 3 07:20:47 Epigastric pain 48888554 Completed 201610/10/2019 Not Available [facility] 3 06:07:51 Hyperlipid emia 77753342 Active 2022 Not Available [facility] 3 07:20:47 Osteoarthr itis of knee 992891674 Active 2022 Not Available [facility] 3 07:20:47 Malignant neoplasm of prostate 527993602 Active 2022 Not Available [facility] 3 07:20:47 Decreased hearing 229605037 Active 2022 Not Available [facility] 3 07:20:47 COVID-19 353240057 Active 2022 Rita doe, [place] [facility] 3 17:20:42 Bilateral inguinal hernia 23202762 Active 2023 Primo aldana MD [address], [place], [address] , [facility] 4 12:11:47 Urinary incontinen ce 992829432 Active 2023 Primo aldana MD [address], [place], [address] , [place] [facility] 4 12:15:47 Varicose veins of lower extremity 69800885 Active 2023 Primo aldana MD [address], [place], [address] , [place] [facility] 4 12:32:57 Periodic limb movement disorder 450058496 Active 2023 Oscar Gates MD [address], [place], [address] , [facility] 4 12:54:40 Essential hypertensi on 89792045 Active 2023 Primo aldana MD [address], [place], [address] , [place] [facility] 4 19:10:36 Anemia 780120101 Active 2023 Primo aldana MD [address], [place], [address] , [facility] 4 19:10:36 Liver enzymes level above reference range 672617792 Active 2023 Primo aldana MD [address], [place], [address] , [place] [facility] 4 19:10:36 Skin lesion 15571629 Active 2023 Primo aldana MD [address] [facility], [facility] [address], [place], [address] , [facility] 4 19:10:36 Acute urinary tract infection 715691781 Active 2024 Sandra Santiago MA null, [place] [facility] 5 15:36:03 Urinary tract infectious disease 67735842 Active 2024 Karol Houston MA null, [place] - [facility] 5 15:40:08 Notes:Medical History: Anxie ty Bilateral hearing loss COVID infection 07/2023 Postnasal drip Obesity with with mod OSAHS, AHI = 17, 11/08/19, on CPAP c/o IVRC Hypertension Hyperlipidemia Prediabetes Hepatic steatosis Prostate ca Knee OA Urge urinary incontinence PLMD Varicosis Procedure History: Cholecystectomy 1994 Umbilical herniorrhaphy 1995 Bilateral inguinal herniorrhaphies 2022 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 Procedures Surgical History Date Name Laterality Status Provider Name and Address Organization Details Recorded Time 05/02/20 24 Medicare Wellness CPT Code, subsequent completed Hay Evans LPN [facility] 05/02/2024 11:50:07 05/02/20 24 Advanced Care Planning completed Hay Evans LPN [facility] 05/02/2024 23:59:12 Cholecystectomy completed Not Available [facility] 10/19/2022 05:58:45 Hernia Repair completed Not Available [facility] 10/19/2022 05:58:45 Cardiac Cath completed Not Available [facility] 10/19/2022 05:58:45 Hernia Surgery completed KEESHA Barr [facility] 10/17/2023 11:42:15 Imaging Results None recorded. Procedure Notes None recorded. Medical Equipment None Reported. Allergies Allergen ID Allergen Name Allergen Category Reaction Reaction Severity Criticality Documentation Date Start Date Code Code System Note Provider Name and Address Organization Details Recorded Time 00155 Naprosyn medicatio n rash Not available Not available 10/19/2022 2 RxNorm Not Available [facility] 06:19:30 38048 amoxicill in medicatio n Not available Not available Not available 10/19/2022 723 RxNorm ANXIE TY Not Available [facility] 3 06:19:30 16929 adhesive tape environme nt,medica tion rash Not available Not available 10/19/2022 37556 UNK Not Available [facility] 3 06:19:30 Medications Name Sig Start Date Stop Date Status Note LastModified by Organization Details LastModified Time cyclobenz aprine 10 mg tablet Take 1 tablet 3 times a day by oral route as needed for 10 days. 11/27 completed Not Available Not Available Not Available methocarb barry 500 mg tablet Take 2 tablets 3 times a day by oral route. 02/12 completed Changed for flexeril due to manufact urer issue. Not Available Not Available Not Available doxycycli ne hyclate 100 mg capsule TAKE 1 CAPSULE BY MOUTH TWICE DAILY 10/17 completed Not Available Not Available Not Available lisinopri l 20 mg-hydroc hlorothia zide 12.5 mg tablet Take 1 tablet by mouth once daily active Not Available Not Available No t Available hydrocodo ne 5 mg-acetam inophen 325 mg tablet Take 1 tablet every 6-8 hours by oral route as needed. active Not Available Not Available No t Available Keflex 500 mg capsule Take 1 capsule 3 times a day by oral route for 7 days. active Not Available Not Available No t Available permethri n 5 % topical cream Apply by topical route from neck to soles of feet leave on for 10-12 hours then wash off active Not Available Not Available No t Available ciproflox acin 500 mg tablet Take 1 tablet every 12 hours by oral route for 7 days. 2024 active Not Available Not Available Not Avai lable sulfameth oxazole 800 mg-trimet hoprim 160 mg tablet TAKE 1 TABLET BY MOUTH EVERY 12 HOURS active Not Available Not Available No t Available aspirin 81 mg tablet,de layed release Take 1 tablet every day by oral route. 2013 active Not Available Not Available Not Avai lable tramadol 50 mg tablet TAKE 1 TABLET BY MOUTH TWICE DAILY NEEDED 02/25 completed Not Available Not Available Not Available oxycodone -acetamin ophen 5 mg-325 mg tablet 08/31 completed Not Available Not Available Not Available amoxicill in 875 mg tablet Take 1 tablet every 12 hours by oral route. active Not Available Not Available No t Available magnesium oxide 400 mg (241.3 mg magnesium ) tablet Take by oral route. active Not Available Not Available No t Available methocarb barry 750 mg tablet Take 1 tablet twice a day by oral route. active Not Available Not Available No t Available tamsulosi n 0.4 mg capsule TAKE 1 CAPSULE BY MOUTH ONCE DAILY 04/03 completed Not Available Not Available Not Available lisinopri l 10 mg tablet TAKE 1 TABLET BY MOUTH DAILY 02/16 completed Not Available Not Available Not Available diclofena c sodium 75 mg tablet,de layed release Take 1 tablet twice a day by oral route for 5 days. active Not Available Not Available No t Available lisinopri l 5 mg tablet TAKE 1 TABLET BY MOUTH DAILY 02/17 completed Take 2 po daily Not Available Not Available Not Available Baby Aspirin 81 mg chewable tablet Chew 1 tablet every day by oral route. 11/05 completed Not Available Not Available Not Available lisinopri l 10 mg-hydroc hlorothia zide 12.5 mg tablet TAKE 1 TABLET BY MOUTH ONCE DAILY active Not Available Not Available No t Available levofloxa ahsan 500 mg tablet Take 1 tablet every 24 hours by oral route as directed for 14 days. 05/30 completed Not Available Not Available Not Available methylpre dnisolone 4 mg tablets in a dose pack USE DIRECTED 10/10 completed Not Available Not Available Not Available cefdinir 300 mg capsule TAKE 1 CAPSULE BY MOUTH EVERY 12 HOURS 05/30 completed Not Available Not Available Not Available fluticaso ne propionat e 50 mcg/actua tion nasal spray,[employer]istides pension Inhale 2 sprays every day by intranas al route in the morning for 30 days. active Not Available Not Available No t Available neomycin- polymyxin -hydrocor t 3.5 mg-10,000 unit/mL-1 % ear drops,aristides p INSTILL 4 DROPS INTO AFFECTED EAR(S) BY OTIC ROUTE 3 TIMES PER DAY X 7 days active Not Available Not Available No t Available rosuvasta tin 40 mg tablet Take 1 tablet every day by oral route. 2024 active Not Available Not Available Not Avai lable magnesium 400 mg 03/17 completed Not Available Not Available Not Available Vitamin C 1000mg 03/17 completed Not Available Not Available Not Available Centrum Silver 03/17 completed Not Available Not Available Not Available CoQ-10 100 mg capsule Take by oral route. 2019 active Not Available Not Available Not Avai lable Multi Vitamin active Not Available Not Available Not Available Osteo Bi-Flex Triple Strength 03/17 completed Not Available Not Available Not Available vit C 1,000 mg-multiv it-minera ls-MSM 1,000 mg oral efferv powder pack Take by oral route. active Not Available Not Available No t Available Lagevrio 200 mg capsule (EUA) TAKE 4 CAPSULES BY MOUTH EVERY 12 HOURS FOR 5 DAYS 10/17 completed Not Available Not Available Not Available Vitals Date Recorded Body height Body mass index (BMI) Body weight Body temperature Heart rate Systolic blood pressure Diastolic blood pressure Provider Name and Address Organization Details Last Updated DateTime 4 185.42 cm 30.3 kg/m2 686609. 25 g 97.5 [degF] 84 /min 120 mm[Hg] 72 mm[Hg] Helga Coy Regine [place] [employer] [facility] [employer] 4 11:43:54 Date Recorded Body height Body mass index (BMI) Body weight Body temperature Heart rate Systolic blood pressure Diastolic blood pressure Provider Name and Address Organization Details Last Updated DateTime 5 185.42 cm 31 kg/m2 524250. 21 g 97.9 [degF] 78 /min 124 mm[Hg] 72 mm[Hg] Helga Coy Regine MS [employer] [facility] [employer] 5 10:48:34 Date Recorded Heart rate Respiratory rate Provider N guera and Address Organization Details Last Updated DateTime 04/03/2024 79 /min 15 /min Oscar Gates MD [address] [facility], [facility] [address], [place], [address], [place] [employer] [facility] [employer] 04/03/2024 13:01:26 Date Recorded Body height Body mass index (BMI) Body weight Body temperature Heart rate Oxygen saturation Oxygen saturation in Arterial blood by Pulse oximetry Systolic blood pressure Diastolic blood pressure Provider Name and Address Organization Details Last Updated DateTime 185.42 cm 31.5 kg/m2 701103. 58 g 98.1 [degF] 79 /min 97 % 97 % 120 mm[Hg] 68 mm[Hg] Karol Houston MA [facility] [employer] [facility] 12:07:46 Date Recorded Heart rate Respiratory rate Provider N guera and Address Organization Details Last Updated DateTime 04/24/2024 86 /min 15 /min Oscar Gates MD [address] [facility] [address], [address], [facility] [employer] [facility] 04/24/2024 11:59:07 Date Recorded Body height Body mass index (BMI) Body weight Body temperature Heart rate Oxygen saturation Oxygen saturation in Arterial blood by Pulse oximetry Systolic blood pressure Diastolic blood pressure Provider Name and Address Organization Details Last Updated DateTime 185.42 cm 32.1 kg/m2 629464. 95 g 98.1 [degF] 86 /min 97 % 97 % 124 mm[Hg] 72 mm[Hg] Margret Lawson CMA [facility] [employer] [facility] 11:45:32 Date Recorded Body height Body mass index (BMI) Body weight Body temperature Heart rate Respiratory rate Oxygen saturation Oxygen saturation in Arterial blood by Pulse oximetry Systolic blood pressure Diastolic blood pressure Provider Name and Address Organization Details Last Updated DateTime 185.42 cm 31.7 kg/m2 570448. 17 g 97.7 [degF] 82 /min 16 /min 96 % 96 % 112 mm[Hg] 64 mm[Hg] Hay Evans LPN [facility] [employer] [facility] 17:07:30 Social History Question Answer Notes LastModified by Organization Details LastModified Time Tobacco Smoking Status Never Smoker Not Available [facility] 10/19/2022 05:55:50 Do You Have An Advance Directive? No [id number] Information not available 10/19/2022 How Many Years Have You Consumed Alcohol? 50 [email or web address] Information not available 05/02/2024 Are You Blind Or Do You Have Difficulty Seeing? No [id number] Information not available 10/19/2022 Is Blood Transfusion Acceptable In An Emergency? Yes [email or web address] Information not available 05/02/2024 What Is Your Level Of Caffeine Consumption? Moderate [id number] Information not available 10/19/2022 In The 14 Days Before Symptom Onset, Have You Had Close Contact With A Laboratory-confi rmed COVID-19 While That Case Was Ill? No [id number] Information not available 10/19/2022 In The 14 Days Before Symptom Onset, Have You Had Close Contact With A Person Who Is Under Investigation For COVID-19 While That Person Was Ill? No [id number] Information not available 10/19/2022 Are You Deaf Or Do You Have Serious Difficulty Hearing? Yes Wears Hearing Aids Information not available 05/02/2024 What Type Of Diet Are You Following? REGULAR [id number] Information not available 10/19/2022 Which Illicit Or Recreational Drugs Have You Used? No [id number] Information not available 10/19/2022 What Is The Highest Grade Or Level Of School You Have Completed Or The Highest Degree You Have Received? [id number] Information not available 10/19/2022 Do You Have An Electrostatic Air Filter? No Information not available 04/03/2024 How Many Days Of Moderate To Strenuous Exercise, Like A Brisk Walk, Did You Do In The Last 7 Days? 5 [email or web address] Information not available 05/02/2024 On Those Days That You Engage In Moderate To Strenuous Exercise, How Many Minutes, On Average, Do You Exercise? 19 [email or web address] Information not available 05/02/2024 Have There Been Any Changes To Your Family Or Social Situation? No [id number] Information not available 10/19/2022 What Is The Fluoride Status Of Your Home? Unknown MIGRATION.300026 Information not available 10/19/2022 Are There Any Guns Present In Your Home? Yes MIGRATION.300026 Information not available 10/19/2022 Do You Have A Humidifier? No Information not available 04/03/2024 Do You Use Insect Repellent Routinely? No MIGRATION.030 654653 Information not available 10/19/2022 Where Do You Live? [place]House MIGRATION.300026 Information not available 10/19/2022 Presence Of Domestic Violence No [email or web address] Information not available 05/02/2024 Guns Present In The Home? Yes [email or web address] Information not available 05/02/2024 Are You Able To Care For Yourself? Yes [email or web address] Information not available 05/02/2024 Are You Blind Or Do Yo Have Difficulty Seeing? No [email or web address] Information not available 05/02/2024 Are You Deaf Or Do You Have Serious Difficulty Hearing? Yes Wears Hearing Aids [email or web address] Information not available 05/02/2024 General Stress Level? Low [email or web address] Information not available 05/02/2024 Live Alone Of With Others? With Others [email or web address] Information not available 05/02/2024 Do You Have A Medical Power Of Product Manufacturing Professional? No [email or web address] Information not available 05/02/2024 Do You Have Moisture Problems In Your Home? No Information not available 04/03/2024 What Was The Date Of Your Most Recent Tobacco Screening? 11/21/2024 Information not available 11/21/2024 How Many Children Do You Have? 4 [email or web address] Information not available 05/02/2024 Have You Ever Been Counseled For Unhealthy Alcohol Use? No MIGRATION.0301 [id number] Information not available 10/19/2022 Do You Have Any Pets? Yes 1 Cat [email or web address] Information not available 05/02/2024 Do You Use Protection During Sex? No [email or web address] Information not available 05/02/2024 What Is Your Relationship Status? MIGRATION.0301 [id number] Information not available 10/19/2022 Do You Use Your Seat Belt Or Car Seat Routinely? Yes MIGRATION.0301 [id number] Information not available 10/19/2022 Are You Sexually Active? Yes [email or web address] Information not available 05/02/2024 Do You Have Smoke And Carbon Monoxide Detectors In Your Home? Yes MIGRATION.0301 953607 Information not available 10/19/2022 Are You Passively Exposed To Smoke? No MIGRATION.0301 211148 Information not available 10/19/2022 Are There Any Smokers In Your House? No MIGRATION.0301 448173 Information not available 10/19/2022 What Types Of Sporting Activities Do You Participate In? None [email or web address] Information not available 05/02/2024 Do You Use Sunscreen Routinely? No MIGRATION.0301 716270 Information not available 10/19/2022 Has Tobacco Cessation Counseling Been Provided? No N/a Information not available 10/17/2023 Have You Recently Traveled Abroad? No MIGRATION.0301 325263 Information not available 10/19/2022 Do You Have Difficulty Walking Or Climbing Stairs? No MIGRATION.0301 944292 Information not available 10/19/2022 Do You Have Any Dietary Restrictions? No MIGRATION.0301 922554 Information not available 10/19/2022 How Many Days In The Past Year Have You Consumed 5 Or More Drinks? -1 [email or web address] Information not available 05/02/2024 Sex: Male Functional Status Question Answer Note LastModified by [employer] ion Details LastModified Time Do you use any illicit or recreational drugs? No MIGRATION.18576 53455 Information not available 10/19/2022 Do you or have you ever used any other forms of tobacco or nicotine? No MIGRATION.06278 79721 Information not available 10/19/2022 What is your level of alcohol consumption? Occasional MIGRATION.70897 82098 Information not available 10/19/2022 Do you or have you ever used smokeless tobacco? Never used smokeless tobacco MIGRATION.60855 45408 Information not available 10/19/2022 Are you currently employed? No Retired Information not available 05/02/2024 Do you have transportation difficulties? No MIGRATION.12770 30782 Information not available 10/19/2022 Are you able to walk? YESWOREST MIGRATION.89434 56560 Information not available 10/19/2022 Do you have difficulty doing errands alone? No MIGRATION.73788 41602 Information not available 10/19/2022 Are you able to care for yourself? Yes MIGRATION.39640 19963 Information not available 10/19/2022 Do you have difficulty dressing or bathing? No MIGRATION.21503 63082 Information not available 10/19/2022 Do you or have you ever used e-cigarettes or vape? Never used electronic cigarettes MIGRATION.97858 99985 Information not available 10/19/2022 What is your exercise level? Moderate MIGRATION.76814 11693 Information not available 10/19/2022 Mental Status Question Answer Note LastModified by [employer] ion Details LastModified Time Do you feel stressed (tense, restless, nervous, or anxious, or unable to sleep at night)? [id number] MIGRATION.[id number] 26 Information not available 10/19/2022 Do you have difficulty concentrating, remembering or making decisions? No MIGRATION.17222764 26 Information not available 10/19/2022 Family History Relationship Description Onset Age of this Age Resolved Age Notes LastModified by Organization Details LastModified Time Mother Malignant tumor of breast MIGRATION.652 [id number] Not available 10/19/2022 05:58:47 Mother Diabetes mellitus MIGRATION.367 [id number] Not available 10/19/2022 05:58:47 Mother Malignant neoplasm of bone MIGRATION.109 9321633 Not available 10/19/2022 05:58:47 Father Large prostate MIGRATION.898 [id number] Not available 10/19/2022 05:58:47 Brother Malignant neoplasm of prostate MIGRATION.470 0065352 Not available 10/19/2022 05:58:47 Brother Deep venous thrombosis MIGRATION.317 [id number] Not available 10/19/2022 05:58:47 Brother Obstructive sleep apnea syndrome Not available 2023 12:43:12 Paternal Grandmother Myocardial infarction Not available 04/03 12:43:59 Paternal Grandfather Alcoholism Not available 12:44:41 Paternal Uncle Malignant neoplasm of prostate Not available 2023 12:45:01 Maternal Aunt Leukemia Not avai lable 04/03/2024 12:45:12 Maternal Aunt Malignant neoplasm of lung Not available 2023 12:45:20 Medical History Condition Response HYPERTENSION Y CANCER: SPECIFY Y Immunizations Vaccine Type Date Status Note Provider Nam e and Address Organization Details Recorded Time COVID-19, mRNA, LNP-S, PF, 100 mcg/0.5mL dose or 50 mcg/0.25mL dose completed KEESHA Barr [place] - [facility] 04/04/2024 15:11:02 COVID-19, mRNA, LNP-S, PF, 100 mcg/0.5mL dose or 50 mcg/0.25mL dose completed Helga Columbus, RMA null, [facility] 04/04/2024 15:11:02 RSV, recombinant, protein subunit RSVpreF, adjuvant reconstituted, 0.5 mL, PF 4 completed Helga Coy RMRegine null, [facility] 11/21/2024 10:45:55 zoster recombinant 4 completed Helga Coy RMA null, [facility] 11/21/2024 10:45:55 zoster recombinant 4 completed Helga Coy RMA null, [facility] 11/21/2024 10:45:55 Pneumococcal conjugate PCV20, polysaccharide [id number] conjugate, adjuvant, PF 4 completed KEESHA Barr, [facility] 11/21/2024 10:45:55 Tdap 4 completed Helga Coy RMA null, [facility] 11/21/2024 10:45:55 Tdap 2 completed Not Available [facility] 07/25/2023 07:20:48 COVID-19, mRNA, LNP-S, PF, 100 mcg/0.5mL dose or 50 mcg/0.25mL dose 1 completed Helga Coy RMA null, [facility] 04/04/2024 15:11:02 COVID-19, mRNA, LNP-S, PF, 100 mcg/0.5mL dose or 50 mcg/0.25mL dose 1 completed Helga Coy RMA null, [facility] 04/04/2024 15:11:02 Past Encounters Encounter ID Performer Location Encounter Start Date Encounter Closed Date Diagnosis/Indication Diagnosis SNOMED-CT Code Diagnosis ICD10 Code Diagnosis Note [id number] [facility] Cuca diallo [address] [facility] [place] [address] 11/05/2020 00:00:00 11/05/2020 11:21:53 [id number] [facility] [place] [address] [place] [address] 02/17/2021 00:00:00 02/17/2021 11:15:42 [id number] Marcellus Dumas MD [facility] [place] [address] [place] [address] 04/15/2021 00:00:00 04/15/2021 08:28:24 [id number] Marcellus Dumas MD [facility] [place] [address] [place] [address] 05/03/2021 00:00:00 05/03/2021 08:37:36 [id number] Marcellus Dumas MD [facility] Family [facility] [place] [address] [place] [address] 05/17/2021 00:00:00 05/17/2021 11:40:51 [id number] Marcellus Dumas MD [facility] [place] [address] [place] [address] 08/30/2021 00:00:00 08/30/2021 09:05:58 [id number] Marcellus Dumas MD [facility] [place] [address] [place] [address] 11/15/2021 00:00:00 11/15/2021 12:43:31 [id number] CODEY Ricci [facility] [facility] [place] [address] [place] [address] 02/16/2022 00:00:00 02/16/2022 10:33:02 [id number] Primo aldana MD [facility] Internal Med [facility] [address] [facility] [place] [address] 09/30/2022 00:00:00 09/30/2022 13:22:28 [id number] CODEY Ricci [facility] [place] [address] [place] [address] 03/28/2023 14:57:54 03/28/2023 16:17:48 Obstructive sleep apnea syndrome 15820773 G47.33 In lab study with AHI 16.9In lab titration 11/08/19Ma chine set up 12/20/19He remains on best pressure 9 cm H2O.Downlo ad today with 67% use greater than 4 hours.AHI is 4.2ESS 5OSA is well correctedE ncouraged 100% compliance with all sleepFollo w with PCM for labsAdvise d good sleep habits and patterns:- Set a goal for at least 7 to 8 hours of sleep time per day.-Use the bed mainly for sleep and to go to bed only when tired. If unable to fall asleep after 30 minutes, patient should get out of bed but should not engage in any activity that requires sustained mental alertness. -Maintain a regular bedtime and wake-up time even on weekends-A void excessive naps during the daytime. If a nap is necessary, limit it to no more than 30 minutes.-M inimize environmen rory noise, bright lights, and extremes in bedroom temperatur e.-Avoid alcohol, caffeinate d beverages, and nicotine products for at least 6 hours prior to bedtime.-A void strenuous exercise and large meals for at least 4 hours prior to bedtime.RT C in one year, PRN for concerns [id number] Primo aldana MD S_[facility] Internal Med [place] [address] [facility] [place] [address] 05/30/2023 11:50:52 05/30/2023 12:35:07 Essential hypertension 67888042 I10 On lisinopril and hydrochlor othiazide Prediabetes 094585561 R7 3.03 working on lifestyle measures Hyperlipidemia 07886232 E78.5 no meds, working on lifestyle measures [place] bcutaneous tissue of left forearm [id number] 6539174 R22.32 Declines referrals, he does not desire excisionSa w oncologist previously who felt this was benign Decreased hearing 499758 001 H91.90 follows audiology- hearing in [place] Osteoarthr itis of knee 036423059 M17.9 Declines referral to Ortho or pain management todayCall office if changes his mindIs not interested in any surgery, would only be interested in shots Malignant neoplasm of prostate 047929364 C[address] Kenney Singh at [facility]/p treatment- both hormone and XRT Sleep apnea 18564119 G47 .30 on CPAPfollow s pulm for compliance - Rachael Bowman Cramp in lower limb 4499 54942 R25.2 on OTC magnesium Inguinal hernia 06256449 0 K40.90 has appt tomorrow with general surgeon at [facility]- unsure the nameER precaution s discussed [id number] Primo aldana MD S_[facility] [place] Internal Med [facility] [address] [facility], [facility] [place] [address] 10/17/2023 11:17:10 10/17/2023 12:50:58 Screening - NAD 149058167 Z13.9 C-scope: Cologuard 06/2021, next 06/2024 as per his PCP Mary Burch Get yearly flu shot, get tdap if not doneCan do Shingrix vaccineGet PCVGet COVID 19 vaccine and its boostersGe t RSV vaccine RTC in 6 months, do labs, ER if worse, he and his did verbalize his understand ing of the above Essential hypertension 39193949 I10 On lisinopril -HCTZ 10-12.5mg dailyGet labs Prediabetes 842611830 R7 3.03 Get labs Hyperlipidemia 80235555 E78.5 Not on any meds, wants to diet and exerciseGe t labs Malignant neoplasm of prostate 354401018 C[address] Kofi Blunt MD Sees Dr Kenney Shields at [facility], s/p surgery Bilateral inguinal hernia 92056657 K40.20 S/p repair 06/05/2023 , Dr Reed, does well now Obstructiv e sleep apnea syndrome 30564901 G47.33 On CPAPSee pulmonary Anemia 543306589 D64.9 Get labs Liver enzy mes level above reference range 523013790 R74.01 07/21/2023 :Hep panel/GGT: WNLGet US liver Urinary incontinence 165 233099 R32 On flomaxSees his urologist Skin lesion 24886907 L98 .9 Small dark papule noted on the L mid forehead, refer to dermatolog ist Varicose v eins of lower extremity 06432091 I83.893 Feels achy with getting up and walking, will refer to Dr Reyes Administra tion of pneumococcal vaccine 72101350 Z23 [id number] Oscar Gates MD [facility] [place] [address] 04/03/2024 11:37:15 04/04/2024 09:04:44 Obstructive sleep apnea syndrome 57020803 G47.33 Periodic l imb movement disorder 471461155 G47.61 G47.36 E83.42 [id number] Oscar Gates MD [facility] [place] [address] 04/24/2024 11:31:30 04/26/2024 10:10:24 Obstructive sleep apnea syndrome 93143662 G47.33 Periodic l imb movement disorder 839322056 G47.61 [id number] Primo aldana MD [facility] [place] [place] Internal Med [facility] [address] [place], [place] [id number] 05/02/2024 16:57:30 05/02/2024 18:00:15 Screening - NAD 218871630 Z13.9 C-scope: Cologuard 06/2021, next 06/2024 as per his PCP Mary Burch Get yearly flu shot, get tdap if not doneCan do Shingrix vaccineGet PCVGet COVID 19 vaccine and its boostersGe t RSV vaccine RTC in 6 months, do labs, ER if worse, he and his did verbalize his understand ing of the above Essential hypertension 13232355 I10 On lisinopril -HCTZ 10-12.5mg dailyGet labs Prediabetes 730720388 R7 3.03 Get labs Hyperlipidemia 59515912 E78.5 Not on any meds, wants to diet and exerciseGe t labs Malignant neoplasm of prostate 461826582 C[address] Kofi Blunt MD Sees Dr Kenney Shields at [facility], s/p surgery Bilateral inguinal hernia 98563815 K40.20 S/p repair 06/05/2023 , Dr Reed, does well now Obstructiv e sleep apnea syndrome 88299355 G47.33 On CPAPDr Gates 04/24/2024 , next apt 04/24/2025 Anemia 056652873 D64.[address] Bro Liver enzy mes level above reference range 315192372 R74.01 07/21/2023 :Hep panel/GGT: WNLUS liver: 10/31/2023 : Hepatic steatosis Urinary incontinence 165 892070 R32 On flomaxSees his urologist Skin lesion 27838551 L98 .9 Small dark papule noted on the L mid forehead, refer to dermatolog ist Varicose v eins of lower extremity 15452992 I83.893 Feels achy with getting up and walkingDr Reyes SL 11/15/2023 Adult heal th examination 786914385 Z00.00 Screening for disorder 729254796 Z13.9 [id number] Primo aldana MD S_[facility] Internal Med [place] [address] [facility], [facility] [address] [place] [address] 11/21/2024 10:30:51 11/21/2024 11:24:35 Screening - NAD 670994459 Z13.9 C-scope: Cologuard 06/2021, next 06/2024 as per his PCP Mary Burch Get yearly flu shot, get tdap if not doneCan do Shingrix vaccineGet PCVGet COVID 19 vaccine and its boostersGe t RSV vaccine RTC in 6 months, do labs, ER if worse, he and his did verbalize his understand ing of the above Essential hypertension 32736945 I10 On lisinopril -HCTZ 10-12.5mg dailyGet labs Prediabetes 071684735 R7 3.03 Get labs Hyperlipidemia 92095201 E78.5 Not on any meds, wants to diet and exerciseGe t labs Malignant neoplasm of prostate 251680999 C61 OV 11/21/2024 :Seen Dr Kofi Blunt MD, was seen last week and PSA done at the urology office 0.[address]ney Shields at [facility], s/p surgery Bilateral inguinal hernia 18977871 K40.20 S/p repair 06/05/2023 , Dr Reed, does well now Obstructiv e sleep apnea syndrome 93001125 G47.[address] CPAPDr Gates 04/24/2024 , next apt 04/24/2025 Anemia 047250394 D64.[address] Bro Liver enzy mes level above reference range 929662380 R74.01 07/21/2023 :Hep panel/GGT: WNLUS liver: 10/31/2023 : Hepatic steatosis Urinary incontinence 165 939732 R32 On flomaxSees his urologist Skin lesion 87165198 L98 .9 Small dark papule noted on the L mid forehead, refer to dermatolog ist Varicose v eins of lower extremity 99475055 I83.893 Feels achy with getting up and walkingDr Reyes [facility] 11/15/2023 Health Concerns Section Related Observation LastModified by Organization Detai ls LastModified Time None Recorded Concern Status LastModified by Organization Details LastModified Time None Recorded Advance Directives Directive N: Payers Encounter Date Sequence Insurance Name Policy Number Policy Ahuja Covered Member ID Ahuja Member ID Guarantor Name 10/17/2023 1 [employer] (MEDICARE REPLACEMENT/A DVANTAGE - HMO) [id number] Juarez Prado [id number] Juarez Prado 04/03/2024 1 [employer] (MEDICARE REPLACEMENT/A DVANTAGE - HMO) [id number] Juarez Prado [id number] Juarez Prado 04/24/2024 1 [employer] (MEDICARE REPLACEMENT/A DVANTAGE - HMO) [id number] Juarez Prado [id number] Juarez Prado 05/02/2024 1 [employer] (MEDICARE REPLACEMENT/A DVANTAGE - HMO) [id number] Juarez Prado [id number] Juarez Prado 11/21/2024 1 [facility] (MEDICARE REPLACEMENT/A DVANTAGE - HMO) [id number] Juarez Prado [id number] Juarez Prado Notes Date Note Type Note Provider Name and Address Organization Details Recorded Time text/html OV 10/17/2023:Past Hx:HTNPre diabetesHLDProstate cancerSleep apneaInguinal hernia Here to discuss above and get labs, here with his Primo Ellis MD [address] [facility], [facility] [address], [place], [address], [place] - [facility] 10/17/2023 13:59:15 4 text/html Primary care/Referring provider: Primo Ellis MD During the [facility] diagnostic sleep study on 11/08/19, sleep onset = 18.5 minutes, REM onset = 99.5 minutes, AHI = 17, PLMI = 149. During the [facility] titration sleep study on 11/21/19, sleep onset = 3.5 minutes, REM onset = 126 minutes, PLMI = 100 At home since 03/28/23, the patient uses a [employer] AirSense 11 autoset unit with heated humidification. The patient does not need the ramp to start low and go up slowly on the pressure anymore. There is no xerostomia in a.m. There is no hose/mask condensation with water. The patient wears a full face mask without chin strap. There is no claustrophobia, no nostril/nose bridge irritation, no facial rash, no facial numbness, no nosebleeding. The patient feels more refreshed upon waking and daytime alertness is improved. Energy levels are sustained until noon. At home, the patient sleeps from 2 am to 8 am and wakes up without an alarm. Snoring: heavy, since 1970s. Snorting: no Choking: yes Coughing: yes Gasping: yes Gagging: yes Sighing: yes Witnessed apnea: yes Twitching or jerking of leg(s), arm(s), body, head: yes Teeth grinding: no Teeth clenching: no Sleeptalking: yes Sleepwalking: no Sleep crying: yes Bedwetting: no Tongue/lip/gum/cheek biting: no Sleeping with open mouth: yes Sleep paralysis: no Hypnagogic hallucinations: no Hypnopompic hallucinations: no Vivid dreams: no Difficulty with sleep onset: no Difficulty with sleep maintenance: yes Sleep interruptions: nocturia 1-3 Patient wakes up with: fatigueDaytime cataplexy: no Morning hypersomnolence: yes Afternoon hypersomnolence: yes Caffeine sources in diet: coffee 8 oz per day, tea 8 oz per day, soda 16 oz per day, chocolate 1 candy bar per week Associated medical and psychiatric conditions: Congestive heart failure: no Coronary artery disease: no Myocardial infarction: no Hypertension: yes Stroke: no Bronchial asthma: no Chronic obstructive pulmonary disease: no Depression: no Bipolar disorder: no Anxiety: no Panic disorder: no Posttraumatic stress disorder: no Attention deficit and hyperactivity disorder: no Obsessive Compulsive disorder: no Schizophrenia: no Schizoaffective disorder: no Personality disorder: no Chronic analgesic use: no Chronic sedative/hypnotic use: no EPWORTH SLEEPINESS SCALE (ESS) CHANCE OF DOZING SCORE 0 = would never doze 1 = slight chance of dozing 2 = moderate chance of dozing 3 = high chance of dozing SITUATION AND CHANCE OF DOZING Sitting and reading - 3 Watching television - 3 Sitting inactive in a public place (e.g. a theater or meeting) - 0 As a passenger in a car for an hour without a break - 1 Lying down to rest in the afternoon when circumstances permit - 2 Sitting and talking to someone - 0 Sitting quietly after lunch without alcohol - 0 In a car, while stopped for a few minutes in the traffic - 0 TOTAL SCORE 9 Subjectively, patient has a moderate chance of dozing. Oscar Gates MD [address] [place] [address], [address], [place] - [facility] 04/03/2024 13:01:41 4 text/html Primary care/Referring provider: Primo Ellis MD During the [facility] diagnostic sleep study on 11/08/19, sleep onset = 18.5 minutes, REM onset = 99.5 minutes, AHI = 17, PLMI = 149. During the [facility] titration sleep study on 11/21/19, sleep onset = 3.5 minutes, REM onset = 126 minutes, PLMI = 100 At home since 04/03/24, the patient uses a [employer] AirSense 11 autoset unit with heated humidification. The patient does not need the ramp to start low and go up slowly on the pressure anymore. There is no xerostomia in a.m. There is no hose/mask condensation with water.The patient wears a full face mask without chin strap. There is no claustrophobia, no nostril/nose bridge irritation, no facial rash, no facial numbness, no nosebleeding. The patient feels more refreshed upon waking and daytime alertness is improved. Energy levels are sustained until noon. At home, the patient sleeps from 2 am to 8 am and wakes up without an alarm. Snoring: heavy, since 1970s.Snorting: noChoking: yesCoughing: yesGasping: yesGagging: yesSighing: yesWitnessed apnea: yesTwitching or jerking of leg(s), arm(s), body, head: yesTeeth grinding: noTeeth clenching: noSleeptalking: yesSleepwalking: noSleep crying: yesBedwetting: noTongue/lip/gum/cheek biting: noSleeping with open mouth: yesSleep paralysis: noHypnagogic hallucinations: noHypnopompic hallucinations: noVivid dreams: noDifficulty with sleep onset: noDifficulty with sleep maintenance: yesSleep interruptions: nocturia 1-3Patient wakes up with: fatigueDaytime cataplexy: noMorning hypersomnolence: yesAfternoon hypersomnolence: yesCaffeine sources in diet: coffee 8 oz per day, tea 8 oz per day, soda 16 oz per day, chocolate 1 candy bar per week Associated medical and psychiatric conditions:Congestive heart failure: noCoronary artery disease: noMyocardial infarction: noHypertension: yesStroke: noBronchial asthma: noChronic obstructive pulmonary disease: noDepression: noBipolar disorder: noAnxiety: noPanic disorder: noPosttraumatic stress disorder: noAttention deficit and hyperactivity disorder: noObsessive Compulsive disorder: noSchizophrenia: noSchizoaffective disorder: noPersonality disorder: noChronic analgesic use: noChronic sedative/hypnotic use: no EPWORTH SLEEPINESS SCALE (ESS) CHANCE OF DOZING SCORE0 = would never doze1 = slight chance of dozing2 = moderate chance of dozing3 = high chance of dozing SITUATION AND CHANCE OF DOZINGSitting and reading - 3Watching television - 3Sitting inactive in a public place (e.g. a theater or meeting) - 0As a passenger in a car for an hour without a break - 1Lying down to rest in the afternoon when circumstances permit - 2Sitting and talking to someone - 0Sitting quietly after lunch without alcohol - 0In a car, while stopped for a few minutes in the traffic - 0TOTAL SCORE 9Subjectively, patient has a moderate chance of dozing. Oscar Gates MD [address], [place], [address], [employer] 04/24/2024 12:01:07 4 text/html OV 10/17/2023:Past Hx:HTNPre diabetesHLDProstate cancerSleep apneaInguinal hernia Here to discuss above and get labs, here with his OV 05/02/2024:Here for his f/u apt, he is doing well, he is here with his Primo Ellis MD [address], [place], [address], [employer] 05/07/2024 18:25:46 5 text/html OV 10/17/2023:Past Hx:HTNPre diabetesHLDProstate cancerSleep apneaInguinal hernia Here to discuss above and get labs, here with his OV 05/02/2024:Here for his f/u apt, he is doing well, he is here with his OV 11/21/2024: Here for his f/u apt, he is here with his , does well Primo Ellis MD [address], [place], [address], [employer] 11/21/2024 14:16:47
--- OUTSIDE RECORDS SUMMARY | 2025-01-23 16:04 | XMS_ITS | Clinical Summary ---
Author Organization [facility] Delon cristobal Batsheva Address [address] [place] [address] Care Team Providers Care Steam Plant Records Clerk Name Role Phone Unavailable Primary Care Provider Unavailabl e Allergies Active Allergy Reactions Criticality Noted Date Comments Adhesive Tape-Silicones Rash Medium 10/26/2018 Amoxicillin Unknown 11/08/2023 Medications lisinopril-hydr oCHLOROthiazide (ZESTORETIC) 10-12.5 mg tablet Take 1 Tablet by mouth daily. Active tamsulosin (FLOMAX) 0.4 mg capsule Take 1 Capsule by mouth daily. Active multivitamins-m inerals-lutein (CENTRUM SILVER) Tablet Take by mouth. Active magnesium oxide (MAG-OX) 400 mg (241.3 mg magnesium) tablet Take 400 mg by mouth 2 times daily. Active fluticasone propionate (FLONASE) 50 mcg/spray [place], Suspension nasal inhaler Administer 1 [place] in each nostril daily. Active aspirin (ECOTRIN EC) 81 mg Tablet, Delayed Release (E.C.) Take 81 mg by mouth daily. Active ascorbic acid, vitamin C, (VITAMIN C) 1,000 mg Tablet Take 1,000 mg by mouth daily. Active jynswbat-jnqe-t qjwe-fppk-rcsbj 100 mg-150 mg- 50 mg-150 mg Capsule Take by mouth. Activ e zinc gluconate 50 mg Tablet Take by mouth. Ac tive Active Problems No known active problems Encounters Date Type Department Care Team Description 01/14/2025 External Device Data STL ABSTRACTION Provider, Abstract 01/09/2025 External Device Data STL ABSTRACTION Provider, Abstract 01/08/2025 External Device Data [facility] ABSTRACTION Provider, Abstract 01/07/2025 External Device Data ST[facility] ABSTRACTION Provider, Abstract 12/03/2024 External Device Data ST[facility] ABSTRACTION Provider, Abstract 11/26/2024 External Device Data ST[facility] ABSTRACTION Provider, Abstract 11/06/2024 External Device Data ST[facility] ABSTRACTION Provider, Abstract 10/28/2024 External Device Data STL ABSTRACTION Provider, Abstract from Last 3 Months Family History Medical History Relation Name Comments Breast Cancer Mother Diabetes Son Relation Name Status Comments Brother 1 Brother 2 Brother 3 Alive Brother 4 Alive Brother 5 Alive Brother 6 Alive Brother 7 Alive Brother 8 Alive Daughter 1 Alive Daughter 2 Alive Daughter 3 Alive Daughter 4 Alive Father Mother Sister 1 Alive Sister 2 Alive Son Alive Social History Tobacco Use Types Packs/Day Years Used Date Smoking Tobacco: Never Smokeless Tobacco: Never Tobacco Cessation:Counseling Given: Not Answered Alcohol Use Standard Drinks/Week Comments Yes 2 (1 standard drink = 0.6 oz pur e alcohol) occasional Sex and Gender Information Value Date Recorded Sex Assigned at Not on file Legal Sex Male 3:07 AM PERSONAL BANKING REPRESENTATIVE Gender Identity Not on file Sexual Orientation Not on file Last Filed Vital Signs Vital Sign Reading Time Taken Comments Blood Pressure 139/84 08/01/2024 9:44 AM PERSONAL BANKING REPRESENTATIVE Pulse 70 08/01/2024 9:44 AM PERSONAL BANKING REPRESENTATIVE Temperature 36.8 C (98.2 F) 08/01/2024 9:44 AM PERSONAL BANKING REPRESENTATIVE Respiratory Rate 15 08/01/2024 9:44 AM PERSONAL BANKING REPRESENTATIVE Oxygen Saturation 96% 08/01/2024 9:44 AM PERSONAL BANKING REPRESENTATIVE Inhaled Oxygen Concentration - - Weight 106 kg (233 lb 9.6 oz) 08/01/2024 9:44 AM PERSONAL BANKING REPRESENTATIVE Height 182.9 cm (6') 11/08/2023 10:29 AM CDT Body Mass Index 31.68 11/08/2023 10:29 AM CDT Plan of Treatment Upcoming Encounters Date Type Department Care Team (Late st Contact Info) Description 01/30/2025 11:30 AM CDT Office Visit [facility] Oncology and Hematology - [place] [address] [address] [facility] [place] [address] Christopher Bro MD [address] [facility] [address] [place] [address] Health Maintenance Due Date Last Done Comments COLORECTAL SCREENING 01/25/1997 Colorectal Cancer Screening 01/25/1997 FIT-DNA Q 3 years 01/25/1997 FIT/FOBT Q 1 year 01/25/1997 Flex Sig/CT Colonography Q 5 years 01/25/1997 ZOSTER VACCINE (1 of 2) 01/25/2002 DTAP/TDAP/TD VACCINES (2 - Td or Tdap) 12/19/2021 INFLUENZA VACCINE (#1) 2024 RSV VACCINE (60+ or ) (1 - 1-dose 75+ series) 01/25/2027 PNEUMOCOCCAL VACCINE 50+ YEARS Completed 10/17/[address] [facility] Address: [facility] [id number] [place] [address]
--- OUTSIDE RECORDS SUMMARY | 2025-01-23 16:05 | XMS_ITS | Clinical Summary ---
Author Organization [facility] Address [address] [place] [address] Care Team Providers Care Weathercaster Name Role Phone Unavailable Primary Care Provider Unavailabl e Social History Tobacco Use Types Packs/Day Years Used Date Smoking Tobacco: Never Assessed Sex and Gender Information Value Date Recorded Sex Assigned at Not on file Legal Sex Male 2:02 PM NIGHT NURSE Gender Identity Not on file Sexual Orientation Not on file Plan of Treatment Health Maintenance Due Date Last Done Comments Hepatitis C Virus (HCV) Screening 1950 Colonoscopy 01/25/1997 Colorectal Cancer Screening 01/25/1997 Cologuard 01/25/2002 Immunochemical Fecal Occult Blood 01/25/2002 Pneumococcal Immunization (5 0+ years) (1 of 1 - PCV) 01/25/2002 Zoster Immunization (1 of 2) 01/25/2002 Influenza Immunization (#1) 2024 SARS-COV-2 Immunization ( - season) 2024 Respiratory Syncytial Virus (RSV) Immunization (Adult) (1 - 1-dose 75+ series) 01/25/2027 DTaP/Tdap/Td Immunization Discontinued 12/20/2011 TdaP Immunization Completed 12/20/2011 Hepatitis B Immunization Aged Out No longer eligible based on patient's age to complete this topic Meningococcal Immunization (ACWY) Aged Out No longer eligible based on patient's age to complete this topic Rotavirus Immunization Aged Out No lo nger eligible based on patient's age to complete this topic
--- OUTSIDE RECORDS SUMMARY | 2025-01-23 16:05 | XMS_ITS | Clinical Summary ---
Author Organization [facility] Address [address] [place] [address] Care Team Providers Care Body Welder Name Role Phone Marta Ellis MD Primary Care Provide r Rajeev Reed MD Unavailable [phone] Allergies Active Allergy Reactions Criticality Noted Date Comments Adhesive Tape-Silicones Rash Medium 10/26/2018 Medications multivitamin-mi nerals-lutein tablet Take by mouth Active lisinopril-hydr oCHLOROthiazide (ZESTORETIC) 10-12.5 mg per tablet Take 1 tablet by mouth daily Active tamsulosin (FLOMAX) 0.4 mg extended release capsule Take 1 capsule (0.4 mg total) by mouth daily Active vitamin D3-vitamin K2 25 mcg (1,000 unit)-90 mcg tablet,disinteg rating Take 1 capsule by mouth daily Active calcium carbonate-vitam in D3 1,250 mg (500 mg elemental)-125 unit per tablet Take 1 tablet by mouth daily Active magnesium oxide (MAG-OX) 400 mg (241.3 mg elemental magnesium) tabletIndicatio ns:hypomagnesem ia Take 1 tablet (400 mg total) by mouth 2 (two) times a day Active yjxnuax-slso-lg qsg-rwss-nvdtro 100 mg-150 mg- 50 mg-150 mg capsule Take by mouth Active ascorbic acid (vitamin C) 1,000 mg tablet Take 1 tablet (1,000 mg total) by mouth daily Active RED BEET ROOT-SOUR BELTRAN EXT ORAL Take by mouth Active aspirin 81 mg enteric coated tablet Take 1 tablet (81 mg total) by mouth daily Active oxyCODONE-aceta minophen (PERCOCET) 5-325 mg per tabletIndicatio ns:Pain Take 1 tablet by mouth every 6 (six) hours as needed for pain 20 tablet 06/05/2023 Active docusate sodium (COLACE) 100 mg capsuleIndicati ons:constipatio n Take 1 capsule (100 mg total) by mouth 2 (two) times a day with a glass of water 30 capsule 06/05/2023 Active Active Problems Problem Noted Date Diagnosed Date Bilateral inguinal hernia without obstruction or gangrene 05/31/2023 Lumbar stenosis with neurogenic claudication 07/2019 Assessment & Plan (07/02/2019 2:10 PM REEL WINDER): Mr. Kapadia presents with signs and symptoms of lumbar stenosis with neurogenic claudication. His presentation of symptoms correlate with the findings on the MRI study. Reviewed the above findings with Dr. Ahumada along with the MRI lumbar films and recommend L3-5 posterior lumbar fusion and decompression with instrumentation. Discussed the above findings with the patient and his . Discussed the surgery in greater detail, prognosis, activity restrictions. Discussed other options aside from surgery. Patient and decided that they would like to try injection therapy 1st with pain management. They will call the office when they are ready to consider scheduling surgery. MRI CD return to the patient. Surgical History Surgery Date Site/Laterality Comments CHOLECYSTECTOMY HERNIA REPAIR EYE SURGERY FINGER SURGERY LAPAROSCOPIC INGUINAL HERNIA REPAIR 06/05/2023 Bilat eral Medical History Medical History Date Comments Hernia of abdominal wall Hypertension Sleep apnea Hearing loss Pneumonia Prostate disease Kidney stone Arthritis GERD (gastroesophageal reflux disease) Cancer (HCC) Family History Medical History Relation Name Comments Cancer Mother Diabetes Mother Relation Name Status Comments Mother Social History Tobacco Use Types Packs/Day Years Used Date Smoking Tobacco: Never Smokeless Tobacco: Never Tobacco Cessation:Counseling Given: Not Answered Alcohol Use Standard Drinks/Week Comments Yes 0 (1 standard drink = 0.6 oz pur e alcohol) PHQ-2 Answer Date Recorded PHQ-2 Score 0 07/02/2019 Personal Safety Answer Date Recorded Have you ever been in or are you currently in a harmful physical or emotional relationship or is someone making you feel afraid or unsafe? Denies 06/05/2023 Sex and Gender Information Value Date Recorded Sex Assigned at Not on file Legal Sex Male 3:10 PM REEL WINDER Gender Identity Not on file Sexual Orientation Not on file Occupation Industry Job Start Date Job End Date Retired Not on file Not on file Not on file Obstetrics History Last Filed Vital Signs Vital Sign Reading Time Taken Comments Blood Pressure 125/73 06/05/2023 11:45 AM CDT Pulse 67 06/05/2023 11:45 AM CDT Temperature 36.9 C (98.4 F) 06/05/2023 11:15 AM CDT Respiratory Rate 13 06/05/2023 11:45 AM CDT Oxygen Saturation 96% 06/05/2023 11:45 AM CDT Inhaled Oxygen Concentration - - Weight 101.2 kg (223 lb) 06/05/2023 7:11 AM CDT Height 185.4 cm (6' 1) 06/05/2023 7:11 AM CDT Body Mass Index 29.42 06/05/2023 7:11 AM CDT Plan of Treatment Health Maintenance Due Date Last Done Comments Colon Cancer Screening-Colonoscopy 1950 Hepatitis C Screening 1950 Hepatitis B Screening 01/25/1970 Pneumococcal vaccine 65+ (1 of 1 - PCV) 01/25/2002 Zoster Vaccine (1 of 2) 01/25/2002 Abdominal Aortic Aneurysm (AAA) Screen 01/25/2017 Well Visit 65+ 01/25/2017 Depression Screening 07/02/2020 07/02/2019, 07/02/20 19 DTaP/Tdap/Td Vaccine (2 - Td or Tdap) 12/19/202108/2011 Fall Risk Assessment 06/05/2024 06/05/2023 Influenza Vaccine (Season Ended) 2025 Medical Devices Implanted Type Area Dispatcher Radio Device Identifier Shelf Expiration Date Model / Serial / Lot [employer] Inc/C R Bard Mesh Surgical Inguinal Hernia Synthetic Patch 3dmax 5x7in [id number] - [id number] Implanted:Qty: 1 on 06/05/2023 by Rajeev Reed MD at [facility] Left: Inguinal [employer]/C R Bard [id number] 10/18/2027 [id number] / / [id number] [employer]/C R Bard Mesh Surgical Mid Anatomical Synthetic Patch 3dmax 5x7in [id number] - [id number] Implanted:Qty: 1 on 06/05/2023 by Rajeev Reed MD at [facility] Right: Inguinal [employer]/C R Bard [id number] 01/16/2028 [id number] / / [id number] Insurance UHC MEDICARE ADVANTAGE Member Subscriber Plan / Payer (Ef fective 2019-Present) Name:Juarez Kapadia Relation to Subscriber:Self Name:Juarez Kapadia Payer ID:[id number] (NAIC) Type:[facility] Address: [place] [id number] [place] [id number] [facility] REF Member Subscriber Plan / Payer (Ef fective 2018-Present) Name:Juarez Kapadia Relation to Subscriber:Self Name:Juarez Kapadia Payer ID:[id number] (NAIC) Type:[facility] Address: [address] [place] [phone] UHC MEDICARE ADVANTAGE Care Teams Body Welder Relationship Specialty Start Date End Date Marta Ellis MD [address] [facility] [address] [place] [address] PCP - General Internal Medicine 05/05/23 [place] [address] [facility] [address] [place] [address] Surgeon General Surgery 06/05/23
--- OUTSIDE RECORDS SUMMARY | 2025-01-23 16:05 | XMS_ITS | Referral Summary ---
Author Organization [facility] Address [address] [place] [address] Care Team Providers Care Production Trainer Name Role Phone Marta Ellis MD Primary Care Provide r Rajeev Reed MD Unavailable [phone] Allergies Active Allergy Reactions Criticality Noted Date [...] mouth 2 (two) times a day Active lebyvqy-rbsa-dl doc-zwvv-psseov 100 mg-150 mg- 50 mg-150 mg capsule [...] 07/2019 Assessment & Plan (07/02/2019 2:10 PM MYSQL DEVELOPER): Mr. Kapadia presents with signs and symptoms [...] surgery. MRI CD return to the patient. Social History Tobacco Use Types Packs/Day Years [...] on file Legal Sex Male 3:10 PM MYSQL DEVELOPER Gender Identity Not on file Sexual Orientation Not on file Occupation Industry Job Start Date Job End Date Retired Not on file Not on file Not on file Last Filed Vital Signs [...] 06/05/2023 7:11 AM CDT Plan of Treatment Not on file Medical Devices Implanted Type Area Toy Parts Former Supervisor Device Identifier Shelf Expiration Date Model / Serial / Lot [employer] Inc/C R Bard Mesh Surgical Inguinal Hernia Synthetic Patch 3dmax 5x7in [id number] - [id number] Implanted:Qty: 1 on 06/05/2023 by Rajeev Reed MD at [facility] Left: Inguinal [employer]/C R Bard [id number] 10/18/2027 [id number] / / [id number] [employer]/C R Bard Mesh Surgical Mid Anatomical Synthetic Patch 3dmax 5x7in [id number] - [id number] Implanted:Qty: 1 on 06/05/2023 by Rajeev Reed MD at [facility] Right: Inguinal [employer]/C R Bard [id number] 01/16/2028 [id number] / / [id number] Insurance UHC MEDICARE ADVANTAGE [facility] MDCR HMO REF [facility] MEDICARE ADVANTAGE Care Teams Production Trainer Relationship Specialty Start Date End Date Marta Ellis MD [address] [facility] [address] [place] [address] PCP - General Internal Medicine 05/05/23 [place] [address] [place] [address] Surgeon General Surgery 06/05/23
--- OUTSIDE RECORDS SUMMARY | 2025-01-23 16:05 | XMS_ITS | CONTINUITY OF CARE DOCUMENT ---
Author Name terry angychaitanya Address Unknown Organization [facility] Address [address] [facility] [address] [place] [address] Phone [phone] Care Team Providers Care Automated Access Systems Technician Name Role Phone Eric CAMERON, Alo Unavailable [phone] VISHNU CORDOVA MD Unavailable [phone] VISHNU CORDOVA MD Unavailable PROBLEMS Condition Status Date Provider Notes Cardiology examination completed - Aloocral Reyes MD Hypertension active Patti Regine Taye CASINO CASHIER MANAGER Leg pain active Patti Regine Jimenez CASINO CASHIER MANAGER ENCOUNTERS Date Type Provider Location Encounter Diag nosis - In-person encounter Office Visit Alo Reyes MD [facility] Cardiology examinationHypertensionLeg pain VITAL SIGNS Date Observation Value Provider Body Mass Index (Ratio) 29.81 kg/m2 coral Reyes MD respiratory rate E&M 17 /min Chanda pennington pulse rate 76 /min Chanda Nelson blood pressure, diastolic 88 mm[Hg] Bekah Nelson blood pressure, systolic 135 mm[Hg] Marzena Nelson oxygen saturation, oximetry 97 % Chanda Nelson weight E&M 226 [lb_av] Chanda Nelson height E&M 73 [in_i] Chanda Nelson blood pressure, cuff size large An iram Nelson HISTORY OF MEDICATION USE Medication Status Instructions Dates Provider Indications Com ments lisinopril-hydrochloroth iazide 10-12.5 mg tablet active Chanda Nelson Aspirin Childrens 81 mg tablet,chewable active Chanda Nelson SOCIAL HISTORY Date Observation Value Provider smoking status Never smoker Chanda Nelson INSURANCE PROVIDERS Payer name Policy type / Coverage type Hope red alliance party ID [employer] MEDICARE GOLD ADVANTAGE [facility] Medicare [id number] ADVANCE DIRECTIVES Name Date DISCUSSED - NO DECISION MADE TREATMENT PLAN Date Name Performer Cardiology:He states that he has been having this leg pain and difficulty getting up from the chair over the past year. m ay be neuro related as got RT to prostrate for cancer and this could have caused nerve damage since this does not sound vascular, and it is not venous, will obtain resting and exercise ABIs m ay need to send to Dr. Inder Haas for shondaal Alo Reyes MD Cardiology: B P today: 135/88 Patti Jimenez NP Cardiology:He states that he has been having this leg pain and difficulty getting up from the chair over the past year. since this does not sound vascular, and it is not venous, will obtain resting and exercise ABIs m ay need to send to Dr. Inder Jimenez CASINO CASHIER MANAGER Date Name Arterial Duplex Bi-L ower EX HISTORY OF PROCEDURES Procedure Date Procedure Name Provider Procedure Notes S tatus EKG Alo Reyes MD completed
--- OUTSIDE RECORDS SUMMARY | 2025-01-23 16:05 | XMS_ITS | Encounter Summary ---
Author Organization [facility] Address [address] [place] [address] Care Team Providers Care Concrete Mixer Truck Driver Name Role Phone Naomy Kennedy MD Primary Care Provider [phone] Encounter Details Date Type Department Care Team (Latest Contact Info) Description 05/08/2006 Outpatient Historical [facility] Cleveland Wyman MD [address] [facility] [address] [place] [address] Incisional Hernia without Mention of Obstruction or Gangrene (Primary Dx) Social History Tobacco Use Types Packs/Day Years Used Date Smoking Tobacco: Never Assessed Sex and Gender Information Value Date Recorded Sex Assigned at Not on file Legal Sex Male 3:07 AM BRIDGE CONSTRUCTION INSPECTOR Gender Identity Not on file Sexual Orientation Not on file documented as of this encounter Plan of Treatment Upcoming Encounters Date Type Department Care Team (Late st Contact Info) Description 01/30/2025 11:30 AM CDT Office Visit [facility] Oncology and Hematology - [place] [address] [facility] [address] [place] [address] Christopher Bro MD [address] [facility] [address] [place] [address] documented as of this encounter Procedures Procedure Name Priority Date/Time Associated Diagnosis Comments HEMOGLOBIN AND HEMATOCRIT Routine 05/05/2006 11:12 AM CDT documented in this encounter Results * (ABNORMAL) HEMOGLOBIN AND HEMATOCRIT (05/05/2006 11:12 AM CDT) HEMOGLOBIN 16.7(H) 13.6 - 16.5 g/dL INTERFACE SYSTEM HEMATOCRIT 47.0 40.0 - 48.0 % INTERFACE SYSTEM 05/05/2006 11:1 2 AM CDT us Cleveland Wyman MD HEMATOLOGY ORDERABLES Final R esult INTERFACE SYSTEM Refer to clinic/hospital department documented in this encounter Visit Diagnoses Diagnosis Incisional hernia without mention of obstruction or gangrene- Primary documented in this encounter Care Teams Concrete Mixer Truck Driver Relationship Specialty Start Date End Date Naomy Kennedy MD [address] [address] PCP - General 08/07/15 11/07/23 documented as of this encounter
--- OUTSIDE RECORDS SUMMARY | 2025-01-23 16:05 | XMS_ITS ---
Author Organization [facility] Address [address], [place] [address] Care Team Providers Care Nuclear Security Officer Name Role Phone Primo Ellis Primary Care Provider Kulwant Bailey DPM, Kvng Gomez [phone] REASON FOR VISIT ~eldon foot Encounters Encounter Location Date Provider Diagnosis [facility] [address] [facility] [address] [address] 11/17/2023 Kvng Bailey DPM PLAN OF TREATMENT No Information History and Physical Notes * HPI (History of Present Illness) Category Sub-Category Detail Notes Depression Screening PHQ-2 (2015 Edition) Little interest or pleasure in doing things?: Not at all Feeling down, depressed, or hopeless?: N ot at all Total Score: 0
--- OUTSIDE RECORDS SUMMARY | 2025-01-23 16:05 | XMS_ITS | Encounter Summary ---
Author Organization [facility] Address [address] [place] [address] Care Team Providers Care Deputy City Clerk Name Role Phone Naomy Kennedy MD Primary Care Provider [phone] Encounter Details Date Type Department Care Team (Late Contact Info) Description 05/05/2006 Outpatient Historical [facility] ([facility] [address] [place] [phone] [place] [address] [facility] [address] [place] [address] Social History Tobacco Use Types Packs/Day Years Used Date Smoking Tobacco: Never Assessed Sex and Gender Information Value Date Recorded Sex Assigned at Not on file Legal Sex Male 3:07 AM ASIAN STUDIES PROFESSOR Gender Identity Not on file Sexual Orientation Not on file documented as of this encounter Plan of Treatment Upcoming Encounters Date Type Department Care Team (Late Contact Info) Description 01/30/2025 11:30 AM CDT Office Visit [facility] Oncology and Hematology - [place] [address] [facility] [address] [place] [address] Christopher Bro MD [address] [facility] [address] [place] [address] documented as of this encounter Visit Diagnoses Not on filedocumented in this encounter Care Teams Deputy City Clerk Relationship Specialty Start Date End Date Naomy Kennedy MD [address] [phone] PCP - General 08/07/15 11/07/23 documented as of this encounter
--- OUTSIDE RECORDS SUMMARY | 2025-01-23 16:10 | XMS_ITS | CONTINUITY OF CARE DOCUMENT ---
Author Name terry angychaitanya Address Unknown Organization [facility] Address [address] [facility] [address] [place] [address] Phone [phone] Care Team Providers Care Rn Postpartum Name Role Phone Eric CAMERON, Alo Unavailable [phone] VISHNU CORDOVA MD Unavailable VISHNU CORDOVA MD Unavailable PROBLEMS Condition Status Date Provider Notes Leg pain active Patti Jimenez TOE POUNDER Hypertension active Patti Jimenez TOE POUNDER Cardiology examination completed - Alo eRyes MD ENCOUNTERS Date Type Provider Location Encounter Diag nosis - In-person encounter Office Visit Alo Reyes MD [facility] Cardiology examinationHypertensionLeg pain VITAL SIGNS Date [...] Policy type / Coverage type Hope red green party ID [employer] MEDICARE GOLD ADVANTAGE [facility] [place] [id number] ADVANCE DIRECTIVES Name Date DISCUSSED - NO [...] need to send to Dr. Inder Jimenez TOE POUNDER Date Name Arterial Duplex Bi-L ower EX HISTORY OF PROCEDURES Procedure Date Procedure Name Provider Procedure Notes S tatus EKG Alo Reyes MD completed
== END 2025-01-23 16:10 | disposition home or self-care (01) ==
PROVIDERS: Emergency Provider Nurse Practitioner Family
DX: S90.562A Insect bite (nonvenomous), left ankle, initial encounter (principal); W57.XXXA Bitten or stung by nonvenomous insect and other nonvenomous arthropods, initial encounter
CPT/HCPCS: 99213; G0463